=== PATIENT | male | born 1985 | race Caucasian/White ===

== ENCOUNTER 2016-10-28 16:51 | Emergency (ER) | payer OTHER ==
[2016-10-28 17:02] VITALS: BP 126/76; PULSE 92; TEMP 98.8; BMI 47.0
[2016-10-28 18:17] LABS: URINE APPEARANCE CLEAR; URINE BILIRUBIN NEGATIVE (NEGATIVE); URINE BLOOD NEGATIVE (NEGATIVE); URINE COLOR YELLOW; URINE GLUCOSE (UA) NEGATIVE (NEGATIVE); URINE KETONE TRACE (NEGATIVE); URINE NITRITE NEGATIVE (NEGATIVE); URINE UROBILINOGEN NEGATIVE E.U./dl (0.2-1.0)
[2016-10-28] MEDS ORDERED: AZITHROMYCIN 1 GM PACKET PO ONE (18:20)
[2016-10-28] MEDS ORDERED: AZITHROMYCIN 1 GM PACKET ONE (18:23)
[2016-10-28 18:26] LABS: URINE PROTEIN 1+ (NEGATIVE)
--- NOTE | 2016-10-28 18:26 | PDOC ---
History of Present Illness - General Chief Complaint: Pain Stated Complaint: CONGESTED/FEVER Time Seen by Provider: 10/28/16 18:04 History Source: Patient Exam Limitations: No Limitations - History of Present Illness Travel History: No Initial Comments: 10/28/16 18:20 31 yr male with c/o burning with urination and "white pimples" on the penis noticed one week ago. Pt denies abd pain neg nvd. Pt denies any history of herpes or STD in the past. Pt states his girlfriend has a UTI. no allergies. Timing/Duration: reports: constant, getting worse Quality: reports: mild, burning Pain Radiation: reports: no radiation Activities at Onset: reports: none Past History - Past Medical History Allergies/Adverse Reactions: Allergies Allergy/AdvReac Type Severity Reaction Status Date / Time No Known Allergies Allergy Verified 10/28/16 17:02 Home Medications: Ambulatory Orders No Home Medications 0 dose .ROUTE UTDICT 12/04/13 Acyclovir [Zovirax -] 400 mg PO TID #30 tablet 10/28/16 Albuterol Sulfate Inhaler - [Ventolin HFA Inhaler -] 1 - 2 inh PO QID #1 inhaler 10/28/16 Cancer: Yes (AML (REMISSION 2010)) - Immunization History Immunization Up to Date: Yes - Psycho/Social/Smoking Cessation Hx Anxiety: No Suicidal Ideation: No Smoking Status: Yes Smoking History: Current every day smoker Have you smoked in the past 12 months: Yes Number of Cigarettes Smoked Daily: 5 Cigars Per Day: 0 Information on smoking cessation initiated: Yes 'Breaking Loose' booklet given: 10/28/16 Hx Alcohol Use: Yes (SOCIAL) Drug/Substance Use Hx: No Substance Use Type: None Abd/GI Specific PMHX - Complaint Specific PMHX Colitis: No Diverticulitis: No Gall Bladder Disease: No GERD: No Hepatitis: No Irritable Bowel Synd (IBS): No Pancreatitis: No GI Ulcer Disease: No Review of Systems - Review of Systems Able to Perform ROS?: Yes Is the patient limited Turkish proficient: No Constitutional: No: Symptoms Reported HEENTM: Yes: Symptoms Reported Respiratory: Yes: Cough Cardiac (ROS): No: Symptoms Reported ABD/GI: No: Symptoms Reported : Yes: Symptoms Reported, Burning *Physical Exam - Vital Signs Last Vital Signs Temp Pulse Resp BP Pulse Ox 98.8 F 92 H 20 126/76 98 10/28/16 16:59 10/28/16 16:59 10/28/16 16:59 10/28/16 16:59 10/28/16 16:59 - Physical Exam General Appearance: Yes: Nourished, Appropriately Dressed HEENT: positive: EOMI, FAVIAN, Normal ENT Inspection, TMs Normal, Pharynx Normal Neck: negative: Tender Respiratory/Chest: positive: Lungs Clear, Normal Breath Sounds, Wheezing (exp ) . negative: Chest Tender Cardiovascular: positive: Regular Rhythm, Regular Rate Gastrointestinal/Abdominal: positive: Normal Bowel Sounds, Soft Male Genitalia: positive: normal genitalia, other (multiple white vesicular lesions to shaft of penis, grouped ) Musculoskeletal: positive: Normal Inspection Extremity: positive: Normal Capillary Refill, Normal Inspection, Normal Range of Motion Integumentary: positive: Normal Color, Dry, Warm Neurologic: positive: Fully Oriented, Alert, Normal Mood/Affect, Normal Response , Motor Strength 09/28 ED Treatment Course - LABORATORY CBC & Chemistry Diagram: 10/28/16 18:30 Medical Decision Making - Medical Decision Making 10/28/16 19:05 cc: urianry burning, white pimples on penis for 1 week pt also with cough mild exp wheezing no fever or chills no history of asthma , pt is a smoker will treat for Herpes, Gc, chlamydia will draw HIV, HEP , RPR 10/28/16 19:51 *DC/Admit/Observation/Transfer Diagnosis at time of Disposition: Bronchitis, Herpes genitalis in men - Discharge Dispostion Disposition: HOME Condition at time of disposition: Good - Prescriptions Prescriptions: Albuterol Sulfate Inhaler - [Ventolin HFA Inhaler -] 1 - 2 inh PO QID #1 inhaler Acyclovir [Zovirax -] 400 mg PO TID #30 tablet - Referrals Referrals: Jaguar Reina MD [Primary Care Provider] - - Patient Instructions Additional Instructions: 10/28/16 1. As discussed, a screening test for the HIV virus was performed today. Your HIV test is Negative (normal). 2. As discussed, if you engaged in high risk-behavior in the three (3) months prior to this test, you could still potentially be at risk and you will need to be re-tested. 3. As discussed, avoid any high risk behavior (such as unprotected sex or needle-sharing) in the future to minimize the chances of sunny HIV. take the prescribed medication as directed drink pleanty of water to stay hydrated follow with your doctor this week for follow up if your cough or breathing gets worse please tell your sexual partners they need to be tested for STD's always use condoms
[2016-10-28 18:27] LABS: URINE LEUK ESTERASE 1+ (NEGATIVE)
[2016-10-28 18:32] LABS: URINE MUCUS MANY; URINE RBC 6 /hpf (0-3); URINE WBC 30 /hpf (3-5)
[2016-10-28] MEDS ORDERED: ALBUTEROL SO4 2.5/IPRATROPIUM 0.5 INH SOL 3 ML VIAL.NEB. NEB ONE (18:39)
[2016-10-28 18:49] LABS: BASOPHIL 0.6 % (0-2.0); MCH 29.8 pg (25.7-33.7); MCHC 33.3 g/dl (32.0-35.9); MEAN CELL VOLUME 89.6 fl (80-96); MEAN PLT VOLUME 8.1 fl (7.5-11.1); NEUTROPHILS 62.6 % (42.8-82.8); PLATELET COUNT 193 K/MM3 (134-434); RDW 13.8 % (11.9-15.9); WHITE BLOOD COUNT 8.5 K/mm3 (4.0-10.0)
[2016-10-28] MEDS ORDERED: ALBUTEROL SO4 0.083% IH SOL 2.5 MG/3 ML VIAL.NEB. NEB ONE (18:50)
[2016-10-28 19:37] LABS: HIV 1 & 2 AB NEGATIVE; HIV 1 AGp24 NEGATIVE
== END 2016-10-28 19:51 | disposition home or self-care (01) ==
LOC: JERFT 16:51
PROC: 3E0F7GC Introduction of Other Therapeutic Substance into Respiratory Tract, Via Natural or Artificial Opening (ICD-10-PCS; principal; 2016-10-28)
PROC: 3E02329 Introduction of Other Anti-infective into Muscle, Percutaneous Approach (ICD-10-PCS; 2016-10-28)
DX: J40 Bronchitis, not specified as acute or chronic (principal); A60.01 Herpesviral infection of penis
CPT/HCPCS: 36415; 80074; 81003; 81015; 85025; 86593; 87086; 87389; 87491; 87591; 94640; 96372; 99281-25

== ENCOUNTER 2017-01-18 13:39 | Emergency (ER) | payer OTHER ==
[2017-01-18 14:16] VITALS: BP 127/79; PULSE 74; TEMP 98.6; BMI 43.7
[2017-01-18] MEDS ORDERED: LIDOCAINE HCL 1%, 10 MG/ML (20ML VIAL) ONE (15:14)
[2017-01-18] MEDS ORDERED: AZITHROMYCIN 1 GM PACKET ONE (15:14)
[2017-01-18 15:47] LABS: HIV 1 & 2 AB NEGATIVE; HIV 1 AGp24 NEGATIVE
--- NOTE | 2017-01-18 16:03 | PDOC ---
History of Present Illness - General Chief Complaint: Revisit, Lab Variance Stated Complaint: STD TESTING Time Seen by Provider: 01/18/17 15:03 History Source: Patient Exam Limitations: No Limitations - History of Present Illness Initial Comments: 01/18/17 16:22 31 yr male here to be tested for STD. Pt states he had genital herpes 2-3 months ago and was treated, here because his girlfriend told him to be tested. Pt denies any outbreak currently denies any history of chlamydia or ghonnorhea. Pt has history of leukemia in the past. Past History - Past Medical History Allergies/Adverse Reactions: Allergies Allergy/AdvReac Type Severity Reaction Status Date / Time acyclovir Allergy Intermediate Hives Verified 01/18/17 14:15 Home Medications: Ambulatory Orders Valacyclovir HCl [Valtrex -] 500 mg PO BID 01/18/17 Cancer: Yes (AML (REMISSION 2011)) - Immunization History Immunization Up to Date: Yes - Psycho/Social/Smoking Cessation Hx Anxiety: No Suicidal Ideation: No Smoking Status: Yes Smoking History: Current some day smoker Have you smoked in the past 12 months: Yes Number of Cigarettes Smoked Daily: 5 Cigars Per Day: 0 Information on smoking cessation initiated: No 'Breaking Loose' booklet given: 10/28/16 Hx Alcohol Use: Yes (SOCIAL) Drug/Substance Use Hx: No Substance Use Type: None Review of Systems - Review of Systems Able to Perform ROS?: Yes Is the patient limited Niuean proficient: No Constitutional: No: Symptoms Reported HEENTM: No: Symptoms Reported Respiratory: No: Symptoms reported Cardiac (ROS): No: Symptoms Reported ABD/GI: No: Symptoms Reported : No: Symptoms Reported Musculoskeletal: No: Symptoms Reported Integumentary: No: Symptoms Reported Neurological: No: Symptoms reported *Physical Exam - Vital Signs Last Vital Signs Temp Pulse Resp BP Pulse Ox 98.6 F 74 19 127/79 99 01/18/17 14:12 01/18/17 14:12 01/18/17 14:12 01/18/17 14:12 01/18/17 14:12 - Physical Exam General Appearance: Yes: Nourished, Appropriately Dressed HEENT: positive: EOMI, FAVIAN Neck: positive: Supple Respiratory/Chest: positive: Lungs Clear, Normal Breath Sounds Cardiovascular: positive: Regular Rhythm, Regular Rate Gastrointestinal/Abdominal: positive: Normal Bowel Sounds, Soft Male Genitalia: positive: normal genitalia. negative: normal prostate, discharge, testicular tenderness, testicular mass, epididymus tender, inguinal hernia, hernia, CVAT, hematuria Musculoskeletal: positive: Normal Inspection Extremity: positive: Normal Capillary Refill, Normal Inspection, Normal Range of Motion Integumentary: positive: Normal Color, Dry, Warm Neurologic: positive: Fully Oriented, Alert, Normal Mood/Affect, Normal Response , Motor Strength 5/5 Medical Decision Making - Medical Decision Making 01/18/17 16:27 cc: wants to be tested for STD as per his girlfriend pt has history of genital herpes 2 months ago first outbreak was treated, has no outbreak now will check for HIV, Hepatitis, RPR, chlamydia and ghonorrhea will refer to infectious disease to follow up *DC/Admit/Observation/Transfer Diagnosis at time of Disposition: Risk for sexually transmitted disease, Screen for STD (sexually transmitted disease) - Discharge Dispostion Disposition: HOME Condition at time of disposition: Good - Referrals Referrals: Elise Reina [Primary Care Provider] - Alanna Sarabia MD [Staff Physician] - - Patient Instructions Additional Instructions: 01/18/17 1. As discussed, a screening test for the HIV virus was performed today. Your HIV test is Negative (normal). 2. As discussed, if you engaged in high risk-behavior in the three (3) months prior to this test, you could still potentially be at risk and you will need to be re-tested. 3. As discussed, avoid any high risk behavior (such as unprotected sex or needle-sharing) in the future to minimize the chances of sunny HIV. please follow with infectious disease doctor for follow up always use condoms to prevent spreading of infectious sexual diseases
== END 2017-01-18 16:37 | disposition home or self-care (01) ==
LOC: JERFT 13:39
DX: Z11.3 Encounter for screening for infections with a predominantly sexual mode of transmission (principal); F17.210 Nicotine dependence, cigarettes, uncomplicated; C94.81 Other specified leukemias, in remission
CPT/HCPCS: 36415; 80074; 86593; 87389; 87491; 87591; 99281-25

== ENCOUNTER 2017-03-17 17:21 | Emergency (ER) | payer OTHER ==
[2017-03-17 17:25] VITALS: BP 147/72; PULSE 88; TEMP 98.3; BMI 43.7
--- NOTE | 2017-03-17 18:56 | PDOC ---
History of Present Illness - General Chief Complaint: Abscess Boil Stated Complaint: PAIN Time Seen by Provider: 03/17/17 18:28 History Source: Patient Exam Limitations: No Limitations - History of Present Illness Initial Comments: 03/17/17 18:57 This is a 31-year-old man with past medical history of AML, HSV who presents to the emergency department with an abscess on his lower abdomen. Patient states for the past 3 days he had this abscess which is slowly grown and become more painful over that time. He also noted that he has had other lesions similar- appearing over his back and on his buttocks. Denies any fevers, chest pain, nausea, vomiting, dizziness, shortness of breath. T Severity: Yes: mild Past History - Past Medical History Allergies/Adverse Reactions: Allergies Allergy/AdvReac Type Severity Reaction Status Date / Time acyclovir Allergy Intermediate Hives Verified 03/17/17 17:25 Home Medications: Ambulatory Orders Clindamycin HCl 300 mg PO QID #28 capsule 03/17/17 Cancer: Yes (AML (REMISSION 2010)) Other medical history: HERPES SIMPLEX 2 - Immunization History Immunization Up to Date: Yes - Suicide/Smoking/Psychosocial Hx Smoking Status: Yes Smoking History: Current every day smoker Have you smoked in the past 12 months: Yes Number of Cigarettes Smoked Daily: 5 Cigars Per Day: 0 Information on smoking cessation initiated: No 'Breaking Loose' booklet given: 10/28/16 Hx Alcohol Use: No Drug/Substance Use Hx: No Substance Use Type: None Review of Systems - Review of Systems Able to Perform ROS?: Yes Is the patient limited Eritrean proficient: No Constitutional: No: Symptoms Reported HEENTM: No: Symptoms Reported Respiratory: No: Symptoms reported Cardiac (ROS): No: Symptoms Reported ABD/GI: No: Symptoms Reported : No: Symptoms Reported Musculoskeletal: No: Symptoms Reported Integumentary: Yes: See HPI Neurological: No: Symptoms reported *Physical Exam - Vital Signs Last Vital Signs Temp Pulse Resp BP Pulse Ox 98.3 F 88 20 147/72 99 03/17/17 17:22 03/17/17 17:22 03/17/17 17:22 03/17/17 17:22 03/17/17 17:22 - Physical Exam General Appearance: Yes: Appropriately Dressed. No: Apparent Distress HEENT: positive: EOMI, FAVIAN Neck: positive: Trachea midline. negative: Supple Respiratory/Chest: positive: Lungs Clear, Normal Breath Sounds. negative: Respiratory Distress, Accessory Muscle Use Cardiovascular: positive: Regular Rhythm, Regular Rate. negative: Edema, Murmur Gastrointestinal/Abdominal: positive: Normal Bowel Sounds, Soft. negative: Tender Musculoskeletal: positive: Normal Inspection. 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 Patient states for the past 3 days he had this abscess which is slowly grown and become more painful over that time. He also noted that he has had other lesions similar- appearing over his back and on his buttocks. Denies any fevers, chest pain, nausea, vomiting, dizziness, shortness of breath. The abscess on his abdomen is 2 cm below the navel and is approximately 0.5 cm circular in induration. Flux once noted under indurated area. Gentle palpation of abscess expressible fluid until serosanguineous fluid was expressed. Patient with multiple other similar- appearing lesions that are much smaller in size throughout the body. None of these are painful. Diagnosis-abscesses I'll prescribe the patient clindamycin 300 mg 4 times a day for one week. Patient instructed to make an appointment with his primary doctor to follow-up. *DC/Admit/Observation/Transfer Diagnosis at time of Disposition: Abscess - Discharge Dispostion Disposition: HOME Condition at time of disposition: Stable Admit: No - Prescriptions Prescriptions: Clindamycin HCl 300 mg PO QID #28 capsule - Referrals Referrals: Jaguar Reina MD [Primary Care Provider] - - Patient Instructions Additional Instructions: Take clindamycin as prescribed. We she take all medications. Make an appointment with Dr. Reina for evaluation of not improve within the next 4 days. Make sure you make an appointment with Dr. Latosha if you feel any fevers, sore throat, body aches, dry cough or any other viral symptoms. Return to emergency department for increased pain on the abdominal wall, increased redness, foul smelling drainage, or any other concerns. Thank you for choosing us to provide your emergent healthcare needs.
== END 2017-03-17 19:05 | disposition home or self-care (01) ==
LOC: JERFT 17:21
DX: L02.211 Cutaneous abscess of abdominal wall (principal); C92.01 Acute myeloblastic leukemia, in remission; B00.9 Herpesviral infection, unspecified; F17.210 Nicotine dependence, cigarettes, uncomplicated
CPT/HCPCS: 99281-25

== ENCOUNTER 2017-05-21 08:06 | Emergency (ER) | payer OTHER ==
[2017-05-21 08:12] VITALS: BP 123/66; PULSE 88; TEMP 98.8; BMI 42.3
--- NOTE | 2017-05-21 09:04 | PDOC ---
History of Present Illness - General Chief Complaint: Rash Stated Complaint: GROIN PAIN Time Seen by Provider: 05/21/17 08:58 History Source: Patient Exam Limitations: No Limitations - History of Present Illness Initial Comments: 05/21/17 08:59 Patient here with complaints of ulceration on his penis. States suffers from genital herpes and thought may be an outbreak but this is a different type of lesion than before. Denies fever, denies any discharge, denies being sexually active Severity: Yes: mild Location: reports: none Respiratory Risk Factors: reports: no cause identified Past History - Travel Traveled outside of the country in the last 30 days: No Close contact w/someone who was outside of country & ill: No - Past Medical History Allergies/Adverse Reactions: Allergies Allergy/AdvReac Type Severity Reaction Status Date / Time acyclovir Allergy Intermediate Hives Verified 05/21/17 08:08 Home Medications: Ambulatory Orders Valacyclovir HCl [Valtrex] 1,000 mg PO TID #21 tablet 05/21/17 Cancer: Yes (AML (REMISSION 2010)) COPD: No Other medical history: g.herpes - Immunization History Immunization Up to Date: Yes - Suicide/Smoking/Psychosocial Hx Smoking Status: Yes Smoking History: Current every day smoker Have you smoked in the past 12 months: Yes Number of Cigarettes Smoked Daily: 5 Cigars Per Day: 0 Information on smoking cessation initiated: Yes 'Breaking Loose' booklet given: 05/21/17 Hx Alcohol Use: No Drug/Substance Use Hx: No Substance Use Type: None Review of Systems - Review of Systems Able to Perform ROS?: Yes Is the patient limited Swazi proficient: Yes Constitutional: Yes: See HPI, Malaise. No: Symptoms Reported, Chills, Fever HEENTM: No: Symptoms Reported Musculoskeletal: Yes: Symptoms Reported, See HPI, Back Pain All Other Systems: Reviewed and Negative *Physical Exam - Vital Signs Last Vital Signs Temp Pulse Resp BP Pulse Ox 98.8 F 88 18 123/66 100 05/21/17 08:08 05/21/17 08:08 05/21/17 08:08 05/21/17 08:08 05/21/17 08:08 - Physical Exam General Appearance: Yes: Nourished, Appropriately Dressed, Apparent Distress, Mild Distress HEENT: positive: FAVIAN, Normal ENT Inspection, TMs Normal, Pharynx Normal Neck: positive: Tender, Supple. 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, Fully Oriented, Alert, Normal Mood/ Affect, Normal Response, Motor Strength 09/28 Progress Note - Progress Note Progress Note: Genital herpes outbreak *DC/Admit/Observation/Transfer Diagnosis at time of Disposition: Herpes genitalis in men - Discharge Dispostion Disposition: HOME Condition at time of disposition: Stable - Referrals Referrals: Jaguar Reina MD [Primary Care Provider] - - Patient Instructions Printed Discharge Instructions: DI for Genital Herpes Additional Instructions: Rest, avoid strenuous activity or exercise until lesions healed No sexual activity until lesions are healed Take 2 tablets of 500 mg that [facility] have every 8 hours for the next one week or 1 g tablets every 8 hours for the next one week - Post Discharge Activity Forms/Work/School Notes: Back to Work
== END 2017-05-21 09:12 | disposition home or self-care (01) ==
LOC: JERFT 08:06
DX: A60.01 Herpesviral infection of penis (principal)
CPT/HCPCS: 99281-25

== ENCOUNTER 2017-06-16 10:10 | Emergency (ER) | payer OTHER ==
[2017-06-16 10:36] VITALS: BP 123/70; PULSE 78; TEMP 98.9; BMI 45.2
[2017-06-16] MEDS ORDERED: DEXAMETHASONE SOD PHOSPHATE 10 MG/1 ML VIAL IM ONE (11:24)
[2017-06-16] MEDS ORDERED: DEXAMETHASONE SOD PHOSPHATE 10 MG/1 ML VIAL ONE (11:28)
--- NOTE | 2017-06-16 11:32 | PDOC ---
History of Present Illness - General Chief Complaint: Rash Stated Complaint: RASH/HIVES Time Seen by Provider: 06/16/17 10:42 History Source: Patient Exam Limitations: No Limitations - History of Present Illness Initial Comments: 06/16/17 11:24 Onset of very itchy rash to thighs, back, forearms. States onset was 2 days ago , and is progressively become more itchy and spreading. Patient states suffers from eczema and has used topical hydrocortisone in the past but has not tried that with this. Was concerned may be an ALLERGIC reaction. Patient denies shortness of breath breathing problems or lips or tongue swelling. Denies any fevers, denies any exposure to any contagious diseases. He shouldn't is a survivor of leukemia status post chemotherapy 6 years ago and has extra concerns about rashes and skin problems. 06/16/17 13:36 Timing/Duration: reports: just prior to arrival Severity: Yes: mild, moderate Location: reports: extremities, genitalia Respiratory Risk Factors: reports: no cause identified Modifying Factors: improves with: scratching Associated Symptoms: reports: denies symptoms Past History - Travel Traveled outside of the country in the last 30 days: No - Past Medical History Allergies/Adverse Reactions: Allergies Allergy/AdvReac Type Severity Reaction Status Date / Time acyclovir Allergy Intermediate Hives Verified 06/16/17 10:30 Home Medications: Ambulatory Orders NK [No Known Home Medication] 06/16/17 Cancer: Yes (AML (REMISSION 2011)) COPD: No - Immunization History Immunization Up to Date: Yes - Suicide/Smoking/Psychosocial Hx Smoking Status: Yes Smoking History: Current every day smoker Have you smoked in the past 12 months: Yes Number of Cigarettes Smoked Daily: 5 Cigars Per Day: 0 Information on smoking cessation initiated: No 'Breaking Loose' booklet given: 05/21/17 Hx Alcohol Use: No Drug/Substance Use Hx: No Substance Use Type: None Review of Systems - Review of Systems Able to Perform ROS?: Yes Is the patient limited Setswana proficient: Yes Constitutional: Yes: Symptoms Reported, See HPI. No: Fever, Loss of Appetite, Malaise HEENTM: Yes: See HPI. No: Symptoms Reported Respiratory: Yes: See HPI. No: Symptoms reported, Cough, Wheezing Neurological: Yes: Symptoms reported, See HPI Endocrine: No: Symptoms Reported All Other Systems: Reviewed and Negative *Physical Exam - Vital Signs Last Vital Signs Temp Pulse Resp BP Pulse Ox 98.9 F 78 18 123/70 100 06/16/17 10:31 06/16/17 10:31 06/16/17 10:31 06/16/17 10:31 06/16/17 10:31 - Physical Exam General Appearance: Yes: Nourished, Appropriately Dressed. No: Apparent Distress HEENT: positive: FAVIAN, Normal ENT Inspection, TMs Normal, Pharynx Normal, Nasal Congestion Neck: positive: Supple. negative: Tender, Lymphadenopathy (R), Lymphadenopathy (L) Respiratory/Chest: positive: Lungs Clear (Elling,), Normal Breath Sounds. negative: Respiratory Distress Integumentary: positive: Rash (macular dry rash covering styes, posterior thighs , low back, and forearms. Mildly keratinized and has appearance of an eczema at us type rash. 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, Fully Oriented, Alert, Normal Mood/ Affect, Normal Response, Motor Strength 5/5 Progress Note - Progress Note Progress Note: Eczema exacerbation, given one dose of Decadron and encouraged to rule out with dermatology and continue moisturizing *DC/Admit/Observation/Transfer Diagnosis at time of Disposition: Dermatitis - Discharge Dispostion Disposition: HOME Condition at time of disposition: Stable Admit: No - Referrals Referrals: Jaguar Reina MD [Primary Care Provider] - - Patient Instructions Printed Discharge Instructions: DI for Atopic Dermatitis - Adult Additional Instructions: Rest, keep cool and dry- avoid strenuous activity or hot /humid environments Less hot showers, no abrasive soaps May use heavy creams like Eucerin or Cetaphil to keep skin moist , Vaseline currently recommended for better hydrating purpose May use Benadryl at night for antihistamine, Zyrtec/ Denae or Claritin for daytime antihistamine use to help with itching You have been given one dose of 10 mg of Decadron as a steroid for 1 time dose Bleach baths, one half cup in a full tub of water creating a dilute solution and soaking for proximally 10 minutes. This chlorine is less strong than swimming pool if properly diluted. Will not discolor skin, avoid splashing in face or eyes. This will decolonize/decontaminate skin from the bacteria that may be causing worsened eczema and itching. Some doctors recommend daily until severe episode is resolving then twice a week until healed Followup with PMD in one week if no resolution Make appointment with data communications technician for evaluation when possible - Post Discharge Activity Forms/Work/School Notes: Back to Work
== END 2017-06-16 11:41 | disposition home or self-care (01) ==
LOC: JERFT 10:10 → JER 10:10 → JERFT 11:32
PROC: 3E0233Z Introduction of Anti-inflammatory into Muscle, Percutaneous Approach (ICD-10-PCS; principal; 2017-06-16)
DX: L30.8 Other specified dermatitis (principal)
CPT/HCPCS: 96372; 99281-25

== ENCOUNTER 2017-06-30 20:14 | Emergency (ER) | payer SELFPAY ==
[2017-06-30 20:31] VITALS: BP 139/95; TEMP 98.1; BMI 46.0
[2017-06-30] MEDS ORDERED: ACETAMINOPHEN 1000 MG/100 ML VIAL (NON FORMULARY) IVPB ONE (20:42)
[2017-06-30] MEDS ORDERED: KETOROLAC TROMETHAMINE 30 MG/1 ML VIAL IVPUSH ONE (20:42)
[2017-06-30] MEDS ORDERED: KETOROLAC TROMETHAMINE 30 MG/1 ML VIAL ONE (20:42)
[2017-06-30] MEDS ORDERED: SODIUM CHLORIDE 0.9% 500 ML INFUS.BAG IV ONE (20:45)
[2017-06-30] MEDS ORDERED: LACTATED RINGERS SOLUTION 1,000 ML/1,000 ML INFUS.BAG IV STA (20:46)
[2017-06-30] MEDS ORDERED: ACETAMINOPHEN INJECTION 100 ML IVPB ONE (20:49)
--- NOTE | 2017-06-30 20:49 | PDOC ---
History of Present Illness - General Chief Complaint: Pain, Acute Stated Complaint: PAIN Time Seen by Provider: 06/30/17 20:34 History Source: Patient Exam Limitations: No Limitations - History of Present Illness Initial Comments: This is a 31 YOM with h/o leukemia and prior kidney stone 10 years ago who p/w RLQ pain since this afternoon and hematuria on arrival to the ED which feels exactly the same as his prior kidney stone. The pain is sharp, 10/10, and non- radiating. The only additional symptom he has been having today is mild loose stool. He denies any fever, chills, nausea, vominting, chest pain, SOB, dysuria , testicular pain/swelling, penile discharge, or other symptoms. He has not taken medications for the pain today. His prior kidney stone passed spontaneously without lithotripsy. Past History - Past Medical History Allergies/Adverse Reactions: Allergies Allergy/AdvReac Type Severity Reaction Status Date / Time acyclovir Allergy Intermediate Hives Verified 06/30/17 20:27 Home Medications: Ambulatory Orders Ciprofloxacin [Cipro (Restricted To Id)] 500 mg PO Q12H #6 tablet 06/30/17 Ketorolac Tromethamine [Toradol] 10 mg PO TID #21 tablet 06/30/17 Tamsulosin HCl [Flomax] 0.4 mg PO DAILY #7 cap.er.24h 06/30/17 Cancer: Yes (AML (REMISSION 2010)) COPD: No - Immunization History Immunization Up to Date: Yes - Suicide/Smoking/Psychosocial Hx Smoking Status: Yes Smoking History: Unknown if ever smoked Have you smoked in the past 12 months: Yes Number of Cigarettes Smoked Daily: 5 Cigars Per Day: 0 'Breaking Loose' booklet given: 05/21/17 Hx Alcohol Use: No Drug/Substance Use Hx: No Substance Use Type: None Abd/GI Specific PMHX - Complaint Specific PMHX Colitis: No Diverticulitis: No Gall Bladder Disease: No GERD: No Hepatitis: No Irritable Bowel Synd (IBS): No Pancreatitis: No GI Ulcer Disease: No Review of Systems - Review of Systems Able to Perform ROS?: Yes Constitutional: No: Chills, Fever, Unexplained wgt Loss HEENTM: No: Nose Congestion, Throat Pain Respiratory: No: Cough, Shortness of Breath Cardiac (ROS): No: Chest Pain, Palpitations ABD/GI: Yes: Diarrhea, Other (RLQ pain). No: Constipated, Nausea, Vomiting : Yes: Hematuria. No: Burning, Dysuria Musculoskeletal: No: Back Pain, Neck Pain Integumentary: No: Bruising, Rash Neurological: No: Headache, Numbness, Tingling, Weakness, Dizziness Endocrine: No: Unexplained Weight Gain, Unexplained Weight Loss *Physical Exam - Vital Signs Last Vital Signs Temp Pulse Resp BP Pulse Ox 98.1 F 96 H 139/95 99 06/30/17 20:27 06/30/17 20:27 06/30/17 20:27 06/30/17 20:27 - Physical Exam General Appearance: Yes: Nourished, Appropriately Dressed, Moderate Distress, Obese, Other (uncomfortable appearing adult male, moaning in pain, answering questions appropriately) HEENT: positive: EOMI, FAVIAN, Normal Voice, Hearing Grossly Normal. negative: Scleral Icterus (R), Scleral Icterus (L), Nasal Congestion Neck: positive: Trachea midline, Supple. negative: Tender, Rigid Respiratory/Chest: positive: Lungs Clear, Normal Breath Sounds. negative: Respiratory Distress, Crackles, Rhonchi, Stridor, Wheezing Cardiovascular: positive: Regular Rhythm, Regular Rate. negative: Murmur Gastrointestinal/Abdominal: positive: Normal Bowel Sounds, Soft. negative: Tender, Organomegaly, Pulsatile Mass, Guarding Musculoskeletal: positive: Normal Inspection. negative: Decreased Range of Motion, Vertebral Tenderness Extremity: positive: Normal Capillary Refill, Normal Inspection, Normal Range of Motion. negative: Tender, Cyanosis Integumentary: positive: Normal Color, Dry, Warm. 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 negative: Facial Droop , Numbness, Sensory Deficit, Finger to Nose, Confused, Disoriented ED Treatment Course - LABORATORY CBC & Chemistry Diagram: 06/30/17 20:43 06/30/17 20:43 *DC/Admit/Observation/Transfer Diagnosis at time of Disposition: Ureteral stone Gallstones without obstruction of gallbladder Qualifiers: Cholelithiasis location: gallbladder Cholecystitis presence: without cholecystitis Qualified Code(s): K80.20 - Calculus of gallbladder without cholecystitis without obstruction - Discharge Dispostion Disposition: HOME Condition at time of disposition: Stable Admit: No - Prescriptions Prescriptions: Ciprofloxacin [Cipro (Restricted To Id)] 500 mg PO Q12H #6 tablet Ketorolac Tromethamine [Toradol] 10 mg PO TID #21 tablet Tamsulosin HCl [Flomax] 0.4 mg PO DAILY #7 cap.er.24h - Referrals Referrals: Jaguar Reina MD [Primary Care Provider] - - Patient Instructions Printed Discharge Instructions: DI for Kidney Stones Additional Instructions: You were seen in the ER for a kidney stone. Your blood and urine labwork was unremarkable. Your CT scan of the abdomen showed the kidney stone at the very end of the tube leading to the bladder, meaning that it is almost done passing. It is 4 mm and should pass on its own. You also have gallbladder stones which are not causing a problem at this time. 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 Follow up with Dr. Reina tomorrow, or return to the ER for any new or worsening symptoms. - Post Discharge Activity
[2017-06-30 20:55] LABS: BASO % 0.6 % (0-2.0); EOS % 0.8 % (0-4.5); HEMATOCRIT 46.1 % (35.4-49); HEMOGLOBIN 15.4 GM/dL (11.7-16.9); LYMPH % 40.8 % (8-40); MCH 28.9 pg (25.7-33.7); MCHC 33.4 g/dl (32.0-35.9); MEAN CELL VOLUME 86.3 fl (80-96); MEAN PLT VOLUME 7.8 fl (7.5-11.1); NEUT % 49.8 % (42.8-82.8); PLATELET COUNT 208 K/MM3 (134-434); RBC 5.33 M/mm3 (4.00-5.60); WHITE BLOOD COUNT 11.3 K/mm3 (4.0-10.0)
--- NOTE | 2017-06-30 21:00 | PDOC ---
Attending Attestation - Resident Resident Name: Carri Richardson - ED Attending Attestation I have performed the following: I have examined & evaluated the patient, The case was reviewed & discussed with the resident, I agree w/resident's findings & plan, Exceptions are as noted - HPI HPI: 06/30/17 21:00 31 yo male with rlq, sudden onset . No nausea,vomiting + hematuria - Physicial Exam PE: 06/30/17 22:35 wnwd 31 yo male p/w sudden rt sided pain and hematuria head ncat neck supple lungs cta b/l cvs [id number] aed no rebound no guarding musculoskeletal + rt flank pain ext no edema,no erythema neuro axox3,ambulatory,no focal neuro deficits skin warm,dry psych appropriate - Medical Decision Making 06/30/17 23:32 nonconstructive 4mm stone at UVJ, pt to follow up as outpt
[2017-06-30] MEDS ORDERED: morphine CARPU-JECT 2 MG/1 ML DISP.SYRIN IVPUSH ONE (21:15)
[2017-06-30] MEDS ORDERED: MORPHINE SULFATE 10 MG/1 ML *VIAL ONE (21:16)
[2017-06-30 21:21] LABS: ALBUMIN 3.7 g/dl (3.4-5.0); ALK PHOS 82 U/L (45-117); ANION GAP 9 (8-16); BILIRUBIN,TOTAL 0.4 mg/dL (0.2-1.0); BLOOD UREA NITROGEN 10 mg/dL (7-18); CALCIUM 8.6 mg/dL (8.5-10.1); CHLORIDE 107 mmol/L (98-107); CO2 25 mmol/L (21-32); CREATININE 0.6 mg/dL (0.7-1.3); GLUCOSE,RANDOM 101 mg/dL (74-106); POTASSIUM 3.8 mmol/L (3.5-5.1); SGOT/AST 17 U/L (15-37); SGPT/ALT 32 U/L (12-78); SODIUM 141 mmol/L (136-145); TOT PROT 6.7 g/dl (6.4-8.2)
[2017-06-30 21:35] LABS: URINE APPEARANCE SLCLOUDY; URINE BILIRUBIN NEGATIVE (NEGATIVE); URINE BLOOD 3+ (NEGATIVE); URINE COLOR YELLOW; URINE GLUCOSE (UA) NEGATIVE (NEGATIVE); URINE KETONE NEGATIVE (NEGATIVE); URINE LEUK ESTERASE NEGATIVE (NEGATIVE); URINE NITRITE NEGATIVE (NEGATIVE); URINE PROTEIN NEGATIVE (NEGATIVE); URINE UROBILINOGEN NEGATIVE mg/dL (0.2-1.0)
[2017-06-30 21:39] LABS: EPI CELLS RARE /HPF (FEW); URINE HYALINE CAST 3 /lpf; URINE MUCUS MODERATE
== END 2017-07-01 00:04 | disposition home or self-care (01) ==
LOC: JER 20:14
PROC: 3E0337Z Introduction of Electrolytic and Water Balance Substance into Peripheral Vein, Percutaneous Approach (ICD-10-PCS; principal; 2017-06-30)
PROC: 3E033NZ Introduction of Analgesics, Hypnotics, Sedatives into Peripheral Vein, Percutaneous Approach (ICD-10-PCS; 2017-06-30)
PROC: 3E033NZ Introduction of Analgesics, Hypnotics, Sedatives into Peripheral Vein, Percutaneous Approach (ICD-10-PCS; 2017-06-30)
PROC: 3E0333Z Introduction of Anti-inflammatory into Peripheral Vein, Percutaneous Approach (ICD-10-PCS; 2017-06-30)
DX: N20.1 Calculus of ureter (principal); Z87.442 Personal history of urinary calculi; K80.20 Calculus of gallbladder without cholecystitis without obstruction; C94.81 Other specified leukemias, in remission
CPT/HCPCS: 36415; 74176; 80053; 81003; 81015; 85025; 99282-25

== ENCOUNTER 2017-07-01 21:02 | Emergency (ER) | payer SELFPAY ==
--- NOTE | 2017-07-01 21:23 | PDOC ---
Rapid Medical Evaluation Time Seen by Provider: 07/01/17 21:23 Medical Evaluation: Allergies Allergy/AdvReac Type Severity Reaction Status Date / Time acyclovir Allergy Intermediate Hives Verified 06/30/17 20:27 07/01/17 21:23 The patient presents with a chief complaint of: right sided back pain. Diagnosed with a kidney stone last night. 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 I have performed a brief in-person evaluation of this patient; Pertinent physical exam findings: ambulatory, in no respiratory distress. CVA tenderness on the R. Pulse 97, 155/101 I have ordered the following: CBC, CMP, UA, Toradol, Zofran, IVF The patient will proceed to the ED for further evaluation. Discharge Disposition - Referrals Referrals: Jaguar Reina MD [Primary Care Provider] - - Patient Instructions - Post Discharge Activity
[2017-07-01] MEDS ORDERED: SODIUM CHLORIDE 1,000 ML IV STA (21:29)
[2017-07-01] MEDS ORDERED: KETOROLAC TROMETHAMINE 30 MG/1 ML VIAL IVPUSH ONE (21:29)
[2017-07-01 21:30] VITALS: TEMP 98.3; BMI 44.6
[2017-07-01] MEDS ORDERED: ONDANSETRON 4 MG/2 ML VIAL IVPUSH ONE (21:30)
[2017-07-01 21:52] LABS: BASO % 0.6 % (0-2.0); EOS % 1.1 % (0-4.5); HEMATOCRIT 46.7 % (35.4-49); HEMOGLOBIN 15.7 GM/dL (11.7-16.9); LYMPH % 30.4 % (8-40); MCHC 33.6 g/dl (32.0-35.9); MEAN CELL VOLUME 86.3 fl (80-96); MONO % 8.5 % (3.8-10.2); NEUT % 59.4 % (42.8-82.8); PLATELET COUNT 218 K/MM3 (134-434); RBC 5.41 M/mm3 (4.00-5.60); RDW 14.1 % (11.9-15.9)
[2017-07-01 21:54] LABS: URINE APPEARANCE CLEAR; URINE BILIRUBIN NEGATIVE (NEGATIVE); URINE BLOOD 2+ (NEGATIVE); URINE COLOR LTYELLOW; URINE GLUCOSE (UA) NEGATIVE (NEGATIVE); URINE KETONE NEGATIVE (NEGATIVE); URINE LEUK ESTERASE NEGATIVE (NEGATIVE); URINE NITRITE NEGATIVE (NEGATIVE); URINE PROTEIN NEGATIVE (NEGATIVE); URINE UROBILINOGEN NEGATIVE mg/dL (0.2-1.0)
[2017-07-01] MEDS ORDERED: TAMSULOSIN HCL 0.4 MG CAP.ER.24H (FP) PO ONE (22:04)
--- NOTE | 2017-07-01 22:05 | PDOC ---
History of Present Illness - General Chief Complaint: Pain Stated Complaint: FLANK PAIN Time Seen by Provider: 07/01/17 21:23 - History of Present Illness Initial Comments: 07/01/17 22:13 31-year-old male with history of kidney stones and AML seen in the ER yesterday and was diagnosed with a 4 mm stone at the right UVJ complaining of right flank pain radiating to the right groin. 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 Past History - Past Medical History Allergies/Adverse Reactions: Allergies Allergy/AdvReac Type Severity Reaction Status Date / Time acyclovir Allergy Intermediate Hives Verified 07/01/17 21:25 Home Medications: Ambulatory Orders Ciprofloxacin [Cipro (Restricted To Id)] 500 mg PO Q12H #6 tablet 06/30/17 Ketorolac Tromethamine [Toradol] 10 mg PO TID #21 tablet 06/30/17 Ibuprofen 800 mg PO QID PRN #14 tablet 07/02/17 Oxycodone HCl/Acetaminophen [Percocet 5-325 mg Tablet] 1 - 2 tab PO Q6H PRN #5 tab MDD 4 07/02/17 Tamsulosin HCl [Flomax] 0.4 mg PO DAILY #7 cap.er.24h 07/02/17 Cancer: Yes (AML (REMISSION 2010)) COPD: No GI Disorders: Yes (renal stones (long time ago)) - Immunization History Immunization Up to Date: Yes - Suicide/Smoking/Psychosocial Hx Smoking Status: Yes Smoking History: Current some day smoker Have you smoked in the past 12 months: Yes Number of Cigarettes Smoked Daily: 5 Cigars Per Day: 0 Information on smoking cessation initiated: No 'Breaking Loose' booklet given: 05/21/17 Hx Alcohol Use: No Drug/Substance Use Hx: No Substance Use Type: None Abd/GI Specific PMHX - Complaint Specific PMHX Colitis: No Diverticulitis: No Gall Bladder Disease: No GERD: No Hepatitis: No Irritable Bowel Synd (IBS): No Pancreatitis: No GI Ulcer Disease: No Review of Systems - Review of Systems Able to Perform ROS?: Yes Is the patient limited [place] proficient: No ABD/GI: Yes: Nausea, Vomiting : Yes: Flank Pain (right) *Physical Exam - Vital Signs Last Vital Signs Temp Pulse Resp BP Pulse Ox 98.3 F 97 H 24 155/101 99 07/01/17 21:26 07/01/17 21:26 07/01/17 21:26 07/01/17 21:26 07/01/17 21:26 - Physical Exam General Appearance: Yes: Appropriately Dressed Respiratory/Chest: positive: Lungs Clear, Normal Breath Sounds ED Treatment Course - LABORATORY CBC & Chemistry Diagram: 07/01/17 21:38 07/01/17 21:38 - ADDITIONAL ORDERS Additional order review: Laboratory Results 07/01/17 21:38 Urine Color Ltyellow Urine Appearance Clear Urine pH 5.0 Ur Specific [place] 1.017 Urine Protein Negative Urine Glucose (UA) Negative Urine Ketones Negative Urine Blood 2+ H Urine Nitrite Negative Urine Bilirubin Negative Urine Urobilinogen Negative Ur Leukocyte Esterase Negative 07/01/17 21:38 RBC 5.41 MCV 86.3 MCHC 33.6 RDW 14.1 MPV 8.0 Neutrophils % 59.4 Lymphocytes % 30.4 D Monocytes % 8.5 Eosinophils % 1.1 Basophils % 0.6 *DC/Admit/Observation/Transfer Diagnosis at time of Disposition: Renal colic on right side - Discharge Dispostion Disposition: HOME - Prescriptions Prescriptions: Ibuprofen 800 mg PO QID PRN #14 tablet PRN Reason: Mild Pain Oxycodone HCl/Acetaminophen [Percocet 5-325 mg Tablet] 1 - 2 tab PO Q6H PRN #5 tab MDD 4 PRN Reason: Moderate Pain Tamsulosin HCl [Flomax] 0.4 mg PO DAILY #7 cap.er.24h - Referrals Referrals: Jaguar Reina MD [Primary Care Provider] - Vipin Lopez MD [Staff Physician] - 24 hours - Patient Instructions Printed Discharge Instructions: Kidney Stones -- Adult Additional Instructions: drink plenty of fluids. follow up with your doctor as soon as possible. take medication as prescribed. - Post Discharge Activity
[2017-07-01 22:32] LABS: ALBUMIN 3.8 g/dl (3.4-5.0); ALK PHOS 78 U/L (45-117); ANION GAP 8 (8-16); BILIRUBIN,TOTAL 0.7 mg/dL (0.2-1.0); BLOOD UREA NITROGEN 11 mg/dL (7-18); CALCIUM 8.5 mg/dL (8.5-10.1); CHLORIDE 107 mmol/L (98-107); CO2 26 mmol/L (21-32); CREATININE 0.6 mg/dL (0.7-1.3); GLUCOSE,RANDOM 97 mg/dL (74-106); POTASSIUM 4.1 mmol/L (3.5-5.1); SGOT/AST 16 U/L (15-37); SGPT/ALT 35 U/L (12-78); SODIUM 141 mmol/L (136-145)
[2017-07-01] MEDS ORDERED: morphine CARPU-JECT 4 MG/1 ML DISP.SYRIN IVPUSH ONE (23:24)
[2017-07-01] MEDS ORDERED: MORPHINE SULFATE 10 MG/1 ML *VIAL ONE (23:29)
[2017-07-01 23:38] VITALS: BP 113/48; PULSE 76
== END 2017-07-02 00:34 | disposition home or self-care (01) ==
LOC: JER 21:02
DX: N20.0 Calculus of kidney (principal); Z87.442 Personal history of urinary calculi; Z85.6 Personal history of leukemia; Z72.0 Tobacco use
CPT/HCPCS: 36415; 80053; 81003; 81015; 85025; 99283-25

== ENCOUNTER 2017-07-02 08:16 | Inpatient (IN) | payer SELFPAY ==
[2017-07-02 08:28] VITALS: BMI 44.6
[2017-07-02] MEDS ORDERED: KETOROLAC TROMETHAMINE 30 MG/1 ML VIAL IVPUSH ONE ×2 (08:40→12:28)
[2017-07-02] MEDS ORDERED: ACETAMINOPHEN 1000 MG/100 ML VIAL (NON FORMULARY) IVPB ONE (08:40)
[2017-07-02] MEDS ORDERED: morphine CARPU-JECT 4 MG/1 ML DISP.SYRIN IVPUSH ONE ×2 (08:40→11:03)
[2017-07-02] MEDS ORDERED: TAMSULOSIN HCL 0.4 MG CAP.ER.24H (FP) PO ONE ×2 (08:42→15:30)
[2017-07-02] MEDS ORDERED: SODIUM CHLORIDE 1,000 ML IV STA (08:42)
[2017-07-02] MEDS ORDERED: ONDANSETRON 4 MG/2 ML VIAL IVPUSH ONE (08:42)
[2017-07-02] MEDS ORDERED: TAMSULOSIN HCL 0.4 MG CAP.ER.24H (FP) ONE (08:49)
[2017-07-02] MEDS ORDERED: MORPHINE SULFATE 10 MG/1 ML *VIAL ONE (08:49)
[2017-07-02] MEDS ORDERED: ACETAMINOPHEN INJECTION 100 ML IVPB ONE (08:50)
[2017-07-02] MEDS ORDERED: KETOROLAC TROMETHAMINE 15 MG/ML VIAL ONE ×2 (08:50→12:52)
[2017-07-02] MEDS ORDERED: ONDANSETRON 4 MG/2 ML VIAL ONE (08:50)
--- NOTE | 2017-07-02 09:16 | PDOC ---
History of Present Illness - General Chief Complaint: Pain, Acute Stated Complaint: RT SIDE PAIN Time Seen by Provider: 07/02/17 08:35 History Source: Patient Exam Limitations: No Limitations - History of Present Illness Initial Comments: This is a 31 YOM with h/o kidney stone 10 years ago (passed spontaneously) who returns for a third visit to the ED in three days for right ureteral stone confirmed by spiral CT here in the ED on 06/30/17. The stone is 4 mm and was at the UVJ with mild right hydronephrosis on 06/30/17. The patient has been unable to roller picker his E-Rx (Flomax, toradol, ciprofloxacin) d/t lapse in insurance coverage, and returned to the ED last night because he could not control the pain with OTC pain medications. This is the same reason he returns to us today. He notes 10/10 sharp non-radiating pain in the RLQ (which has migrated slightly since his first visit 06/30). His last episode of hematuria was last night, and since that time he has had difficulty starting a stream of urine. He additionally notes nausea, but no additional symptoms (no vomiting, fever, chills, burning urination, penile discharge, testicular pain/swelling, or other symptoms. Past History - Past Medical History Allergies/Adverse Reactions: Allergies Allergy/AdvReac Type Severity Reaction Status Date / Time acyclovir Allergy Intermediate Hives Verified 07/02/17 08:24 Home Medications: Ambulatory Orders Ciprofloxacin [Cipro (Restricted To Id)] 500 mg PO Q12H #6 tablet 06/30/17 Ketorolac Tromethamine [Toradol] 10 mg PO TID #21 tablet 06/30/17 Ibuprofen 800 mg PO QID PRN #14 tablet 07/02/17 Oxycodone HCl/Acetaminophen [Percocet 5-325 mg Tablet] 1 - 2 tab PO Q6H PRN #5 tab MDD 4 07/02/17 Tamsulosin HCl [Flomax] 0.4 mg PO DAILY #7 cap.er.24h 07/02/17 Cancer: Yes (AML (REMISSION 2010)) COPD: No GI Disorders: Yes (renal stones (long time ago)) - Immunization History Immunization Up to Date: Yes - Suicide/Smoking/Psychosocial Hx Smoking Status: Yes Smoking History: Current some day smoker Have you smoked in the past 12 months: Yes Number of Cigarettes Smoked Daily: 2 Cigars Per Day: 0 Information on smoking cessation initiated: No 'Breaking Loose' booklet given: 05/21/17 Hx Alcohol Use: No Drug/Substance Use Hx: No Substance Use Type: None Abd/GI Specific PMHX - Complaint Specific PMHX Colitis: No Diverticulitis: No Gall Bladder Disease: No GERD: No Hepatitis: No Irritable Bowel Synd (IBS): No Pancreatitis: No GI Ulcer Disease: No Review of Systems - Review of Systems Able to Perform ROS?: Yes Constitutional: No: Chills, Fever, Unexplained wgt Loss HEENTM: No: Nose Congestion, Throat Pain Respiratory: No: Cough, Shortness of Breath Cardiac (ROS): No: Chest Pain, Palpitations ABD/GI: Yes: Nausea, Other (RLQ pain). No: Constipated, Diarrhea, Vomiting : Yes: Hematuria, Other (difficulty urinating). No: Burning, Dysuria Musculoskeletal: No: Back Pain, Neck Pain Integumentary: No: Bruising, Rash Neurological: No: Headache, Numbness, Tingling, Weakness, Dizziness Endocrine: No: Unexplained Weight Gain, Unexplained Weight Loss *Physical Exam - Vital Signs Last Vital Signs Temp Pulse Resp BP Pulse Ox 98.4 F 91 H 20 142/83 97 07/02/17 08:24 07/02/17 08:24 07/02/17 08:24 07/02/17 08:24 07/02/17 08:24 - Physical Exam General Appearance: Yes: Nourished, Appropriately Dressed, Mild Distress, Obese , Other (uncomfortable-appearing adult male, laying flat in hospital bed and splinting RLQ with right hand, andswers questions appropriately) HEENT: positive: EOMI, FAVIAN, Normal Voice, Hearing Grossly Normal. negative: Scleral Icterus (R), Scleral Icterus (L), Nasal Congestion Neck: positive: Trachea midline, Supple. negative: Tender, Rigid Respiratory/Chest: positive: Lungs Clear, Normal Breath Sounds. negative: Respiratory Distress, Crackles, Rhonchi, Stridor, Wheezing Cardiovascular: positive: Regular Rhythm, Regular Rate, S1, S2. negative: Edema , JVD, Murmur Gastrointestinal/Abdominal: positive: Normal Bowel Sounds, Tender (moderate inferior RLQ ttp, no masses/hernias, negative Rovsing sign, negative Dutta's sign, no RUQ ttp), Soft. negative: Organomegaly, Pulsatile Mass, Increased Bowel Sounds, Distended, Guarding, Rebound, Hernia, Mass, Hepatomegaly Male Genitalia: positive: normal genitalia. negative: testicular tenderness, testicular mass Musculoskeletal: positive: Normal Inspection. negative: Decreased Range of Motion, Vertebral Tenderness Extremity: positive: Normal Capillary Refill, Normal Inspection, Normal Range of Motion. negative: Tender, Cyanosis Integumentary: positive: Normal Color, Dry, Warm. 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 negative: Confused, Disoriented ED Treatment Course - LABORATORY CBC & Chemistry Diagram: 07/02/17 08:42 07/02/17 08:42 Medical Decision Making - Medical Decision Making 31 YOM with h/o kidney stone who returns for 3rd visit to ED for right ureteral stone. Unable to roller picker medications at pharmacy d/t insurance lapse. On exam HR 91 otherwise VS not concerning, appears uncomfortable, RLQ ttp, otherwise unremarkable. Ordered is toradol, Ofirmev, morphine, Flomax, IVF, CBCD, CMP, lipase, UA Cx. 07/02/17 11:00 Second dose of morphine 2 mg IV ordered. 07/02/17 12:28 Second dose of Toradol 15 mg IV ordered. Page sent to Dr. Platt, currently admitting for Pt's PCP Jaguar Reina. 07/02/17 12:[address] Platt who admits to Obs Med/Surg. Requests Dr. Negrita Reina, consult order placed as such. *DC/Admit/Observation/Transfer Diagnosis at time of Disposition: Intractable abdominal pain, Right kidney stone, Hydronephrosis, right - Discharge Dispostion Condition at time of disposition: Guarded Admit: Yes - Referrals - Patient Instructions - Post Discharge Activity
--- NOTE | 2017-07-02 09:26 | PDOC ---
Attending Attestation - Resident Resident Name: Carri Richardson - ED Attending Attestation I have performed the following: I have examined & evaluated the patient, The case was reviewed & discussed with the resident, I agree w/resident's findings & plan, Exceptions are as noted - HPI HPI: 07/02/17 09:24 31-year-old male with history of leukemia in remission presents for third visit in 3 days for right 4 mm UVJ stone pain. Has had right flank pain radiating to the right groin, was diagnosed via CAT scan and discharged on pain medications but patient does not have active insurance so he returns to the ED 2 for pain control. Today, reports decreased urine output with occasional gross hematuria, otherwise the pain is consistently in his right groin, no associated vomiting or fevers or chills. - Physicial Exam PE: 07/02/17 09:25 Afebrile Comfortable now after pain medications Abdomen is soft/nondistended. No right upper quadrant tenderness, mild right lateral abdomen and right pelvic discomfort, no tenderness at McBurney's, no guarding or rebound, normal exam. - Medical Decision Making 07/02/17 09:25 Patient seen and evaluated with the resident. I agree with the overall evaluation, assessment, and management with the following summary of visit: 31-year-old male with intractable right kidney stone pain, now with decreased urine output. Rule out obstructive renal insufficiency, rule out superimposed infection, may require intervention as we approach 72 hours of symptoms. Labs, urinalysis Right renal ultrasound Pain control Urology consult
[2017-07-02 09:28] LABS: BASO % 0.3 % (0-2.0); HEMATOCRIT 42.7 % (35.4-49); HEMOGLOBIN 14.2 GM/dL (11.7-16.9); LYMPH % 15.9 % (8-40); MCH 28.7 pg (25.7-33.7); MCHC 33.3 g/dl (32.0-35.9); MEAN CELL VOLUME 86.1 fl (80-96); MEAN PLT VOLUME 7.8 fl (7.5-11.1); MONO % 7.5 % (3.8-10.2); NEUT % 75.3 % (42.8-82.8); PLATELET COUNT 186 K/MM3 (134-434); RBC 4.96 M/mm3 (4.00-5.60); URINE APPEARANCE CLEAR; URINE BILIRUBIN NEGATIVE (NEGATIVE); URINE BLOOD 1+ (NEGATIVE); URINE COLOR YELLOW; URINE GLUCOSE (UA) NEGATIVE (NEGATIVE); URINE KETONE NEGATIVE (NEGATIVE); URINE LEUK ESTERASE NEGATIVE (NEGATIVE); URINE NITRITE NEGATIVE (NEGATIVE); URINE PROTEIN NEGATIVE (NEGATIVE); URINE UROBILINOGEN NEGATIVE mg/dL (0.2-1.0); WHITE BLOOD COUNT 10.4 K/mm3 (4.0-10.0)
[2017-07-02 09:49] LABS: URINE MUCUS FEW
[2017-07-02 09:50] LABS: ALBUMIN 3.3 g/dl (3.4-5.0); ANION GAP 8 (8-16); BLOOD UREA NITROGEN 13 mg/dL (7-18); CALCIUM 8.1 mg/dL (8.5-10.1); CHLORIDE 107 mmol/L (98-107); CO2 28 mmol/L (21-32); CREATININE 0.8 mg/dL (0.7-1.3); GLUCOSE,RANDOM 100 mg/dL (74-106); LIPASE 113 U/L (73-393); POTASSIUM 3.8 mmol/L (3.5-5.1); SGOT/AST 14 U/L (15-37); SGPT/ALT 28 U/L (12-78); SODIUM 143 mmol/L (136-145)
[2017-07-02 09:52] LABS: ALK PHOS 81 U/L (45-117); BILIRUBIN,TOTAL 0.3 mg/dL (0.2-1.0); TOT PROT 6.1 g/dl (6.4-8.2)
--- NOTE | 2017-07-02 15:55 | CONS ---
DATE OF CONSULTATION: 07/02/2017 HISTORY OF PRESENT ILLNESS: Patient is a 31-year-old male with history of right renal stone, was seen in the hospital 3 days ago with right renal colic. A 4-mm stone was seen at the right UVJ with proximal right hydroureteronephrosis. The patient was sent home on antibiotics and pain medications. Due to lack of funds, the patient was unable to obtain his medication. He is readmitted via the emergency room this morning complaining of right flank pain. Patient does have history of leukemia for which he is in remission at present. He denies any trauma to the flank. He does have some intermittent episodes of gross hematuria. In the emergency room, an ultrasound of his kidneys revealed a right hydronephrosis which was mild in nature. His white count is 10.4, hemoglobin is 14.2 and hematocrit 42.7, his platelets were 186. BUN was 13 and creatinine 0.8. Random glucose was 100. The patient's urine was positive for blood, negative for nitrites. IMPRESSION AT PRESENT: Right ureteral stone. We will strain patient's urine, start patient on Flomax 0.4 mg daily, increase p.o. fluids with ambulation. We will repeat renal sonogram as well as KUB in a.m. If stone persists, we will recommend ureteroscopic laser lithotripsy. Cecil [id number]
[2017-07-02] MEDS ORDERED: MORPHINE SULFATE 10 MG/1 ML *VIAL IVPUSH PRN (16:37)
[2017-07-02] MEDS ORDERED: DEXTROSE 5%-0.45% SALINE 1,000 ML IV SCH (16:45)
--- NOTE | 2017-07-02 20:33 | HP ---
Admitting History and Physical - Smoking History Smoking history: Current some day smoker Have you smoked in the past 12 months: Yes Aproximately how many cigarettes per day: 2 - Alcohol/Substance Use Hx Alcohol Use: No Home Medications - Allergies Allergies/Adverse Reactions: Allergies Allergy/AdvReac Type Severity Reaction Status Date / Time acyclovir Allergy Intermediate Hives Verified 07/02/17 08:24 - Home Medications Home Medications: Ambulatory Orders Ciprofloxacin [Cipro (Restricted To Id)] 500 mg PO Q12H #6 tablet 06/30/17 Ibuprofen 800 mg PO QID PRN #14 tablet 07/02/17 Oxycodone HCl/Acetaminophen [Percocet 5-325 mg Tablet] 1 - 2 tab PO Q6H PRN #5 tab MDD 4 07/02/17 Tamsulosin HCl [Flomax] 0.4 mg PO DAILY #7 cap.er.24h 07/02/17 Physical Examination Vital Signs: Vital Signs Temperature 98.1 F 07/02/17 17:50 Pulse Rate 77 07/02/17 17:50 Respiratory Rate 18 07/02/17 17:50 Blood Pressure 101/55 07/02/17 17:50 O2 Sat by Pulse Oximetry (%) 98 07/02/17 14:35 Labs: CBC, BMP 07/02/17 08:42 07/02/17 08:42
[2017-07-02] MEDS: HEPARIN NA (PORCINE) 5,000 UNITS/ML 1ML VIAL SQ SCH (21:47)
[2017-07-02] MEDS: MORPHINE SULFATE 10 MG/1 ML *VIAL IVPUSH PRN (21:47)
[2017-07-03] MEDS: SODIUM CHLORIDE 0.45% 1,000 ML IV SCH ×2 (01:35→08:47)
[2017-07-03] MEDS ORDERED: ACETAMINOPHEN 325 MG TABLET (FP) PO PRN (03:38)
[2017-07-03 08:18] LABS: BASO % 0.3 % (0-2.0); EOS % 0.4 % (0-4.5); HEMATOCRIT 41.4 % (35.4-49); HEMOGLOBIN 13.7 GM/dL (11.7-16.9); LYMPH % 20.9 % (8-40); MCH 28.7 pg (25.7-33.7); MCHC 33.2 g/dl (32.0-35.9); MEAN CELL VOLUME 86.6 fl (80-96); MEAN PLT VOLUME 8.1 fl (7.5-11.1); MONO % 7.3 % (3.8-10.2); NEUT % 71.1 % (42.8-82.8); PLATELET COUNT 172 K/MM3 (134-434); RBC 4.78 M/mm3 (4.00-5.60); WHITE BLOOD COUNT 9.1 K/mm3 (4.0-10.0)
[2017-07-03 08:21] LABS: CHLORIDE 104 mmol/L (98-107); SODIUM 140 mmol/L (136-145)
[2017-07-03 08:32] LABS: ALBUMIN 3.1 g/dl (3.4-5.0); ALK PHOS 64 U/L (45-117); ANION GAP 8 (8-16); BILIRUBIN,TOTAL 0.8 mg/dL (0.2-1.0); BLOOD UREA NITROGEN 11 mg/dL (7-18); CALCIUM 8.5 mg/dL (8.5-10.1); CO2 28 mmol/L (21-32); CREATININE 0.7 mg/dL (0.7-1.3); GLUCOSE,RANDOM 88 mg/dL (74-106); SGOT/AST 17 U/L (15-37); SGPT/ALT 25 U/L (12-78); TOT PROT 5.9 g/dl (6.4-8.2)
[2017-07-03] MEDS: TAMSULOSIN HCL 0.4 MG CAP.ER.24H (FP) PO SCH (08:38)
[2017-07-03] MEDS: MORPHINE SULFATE 10 MG/1 ML *VIAL IVPUSH PRN ×3 (08:49→21:58)
[2017-07-03] MEDS: HEPARIN NA (PORCINE) 5,000 UNITS/ML 1ML VIAL SQ SCH ×2 (09:37→21:59)
[2017-07-03] MEDS: NICOTINE 14 MG/24 HOURS TOPICAL PATCH TD SCH (16:59)
--- NOTE | 2017-07-03 22:53 | PN ---
Progress Note, Physician History of Present Illness: No new complaints - Current Medication List Current Medications: Active Medications Acetaminophen (Tylenol -) 650 mg PO Q6H PRN PRN Reason: FEVER Last Admin: 07/03/17 03:42 Dose: 650 mg Heparin Sodium (Porcine) (Heparin -) 5,000 unit SQ BID [facility] Last Admin: 07/03/17 21:59 Dose: 5,000 unit Sodium Chloride (1/2 Normal Saline) 1,000 mls @ 100 mls/hr IV ASDIR [facility] Last Admin: 07/03/17 08:47 Dose: 100 mls/hr Levofloxacin (Levaquin -) 500 mg PO DAILY@0600 [facility] Stop: 07/04/17 05:59 Last Admin: 07/03/17 06:19 Dose: 500 mg Morphine Sulfate (Morphine Injection -) 4 mg IVPUSH Q4H PRN PRN Reason: pain Last Admin: 07/03/17 21:58 Dose: 4 mg Nicotine (Nicoderm Patch -) 14 mg TD DAILY [facility] Last Admin: 07/03/17 16:59 Dose: Not Given Tamsulosin HCl (Flomax -) 0.4 mg PO DAILY@0830 [facility] Last Admin: 07/03/17 08:38 Dose: 0.4 mg - Objective Vital Signs: Vital Signs Temperature 98.5 F 07/03/17 17:24 Pulse Rate 88 07/03/17 17:24 Respiratory Rate 18 07/03/17 20:39 Blood Pressure 118/62 07/03/17 17:24 O2 Sat by Pulse Oximetry (%) 97 07/03/17 20:39 Neck: Yes: WNL Cardiovascular: Yes: WNL, Regular Rate and Rhythm Respiratory: Yes: WNL, Regular, CTA Bilaterally Gastrointestinal: Yes: WNL, Normal Bowel Sounds, Soft, Abdomen, Obese Labs: CBC, BMP 07/03/17 06:00 07/03/17 06:00 Problem List - Problems (1) Hydronephrosis, right Assessment/Plan: Ulrasouns showed increased rt hydronephrosis Due to urethral stone Cont IVF/flomax Morphine for pain As per uro Possible laser in am Possible dc planning after procedure Code(s): N13.30 - UNSPECIFIED HYDRONEPHROSIS
[2017-07-04] MEDS: SODIUM CHLORIDE 0.45% 1,000 ML IV SCH (03:08)
[2017-07-04] MEDS: TAMSULOSIN HCL 0.4 MG CAP.ER.24H (FP) PO SCH (08:42)
--- NOTE | 2017-07-04 09:13 | PN ---
Progress Note (short form) - Note Progress Note: 32 y/o M w/ chronic rt hydroenephrosis. No evidence of stone on ultrasound, ct, or KUB. No acute tenderness, fever, or hematuria. Impression- asymptomatic rt mild hydronephrosis. Pt cleared urologically, will send home with kater and flomichelle. Will reevaluate next week in office.
[2017-07-04] MEDS: HEPARIN NA (PORCINE) 5,000 UNITS/ML 1ML VIAL SQ SCH (10:42)
[2017-07-04] MEDS: NICOTINE 14 MG/24 HOURS TOPICAL PATCH TD SCH (10:43)
[2017-07-04 17:22] VITALS: BP 128/75; PULSE 92; TEMP 98.5
--- NOTE | 2017-07-04 18:09 | PN ---
Progress Note (short form) - Note Progress Note: UROLOGY NOTE. Pt. may be dischared home if ok with dr larsen
--- NOTE | 2017-07-04 20:09 | DS ---
Physical Examination Vital Signs: Vital Signs Temperature 98.5 F 07/04/17 17:21 Pulse Rate 92 H 07/04/17 17:21 Respiratory Rate 18 07/04/17 17:21 Blood Pressure 128/75 07/04/17 17:21 O2 Sat by Pulse Oximetry (%) 96 07/04/17 09:00 Labs: CBC, BMP 07/03/17 06:00 07/03/17 06:00 Discharge Summary Reason For Visit: INTRACTABLE ABD PAIN,CALCULUS OF URETER Current Active Problems Hydronephrosis, right (Acute) Intractable abdominal pain (Acute) Right kidney stone (Acute) Condition: Good - Instructions Diet, Activity, Other Instructions: Regular diet See Dr Reina in 1 week Disposition: HOME - Home Medications Comprehensive Discharge Medication List: Ambulatory Orders Ciprofloxacin [Cipro (Restricted To Id)] 500 mg PO Q12H #6 tablet 06/30/17 Ibuprofen 800 mg PO QID PRN #14 tablet 07/02/17 Oxycodone HCl/Acetaminophen [Percocet 5-325 mg Tablet] 1 - 2 tab PO Q6H PRN #5 tab MDD 4 07/02/17
== END 2017-07-04 20:56 | disposition home or self-care (01) | DRG 465 ==
LOC: JER 08:16 → JERBED 12:33 → J7W 14:14 → OBSVTOIN 16:35
PROVIDERS: ADMIT Internal Medicine; ATTEND Internal Medicine
DX: N13.2 Hydronephrosis with renal and ureteral calculous obstruction (principal); F17.210 Nicotine dependence, cigarettes, uncomplicated; C95.91 Leukemia, unspecified, in remission; R31.0 Gross hematuria
CPT/HCPCS: 36415; 74018-TC-FY; 76775-TC; 76856-TC; 80053; 81003; 81015; 83690; 85025; 87086; 99285-25; G0378; J1644

== ENCOUNTER 2017-10-19 18:24 | Emergency (ER) | payer OTHER ==
[2017-10-19 18:29] VITALS: BP 142/78; PULSE 88; TEMP 98.1; BMI 47.7
--- NOTE | 2017-10-19 18:47 | PDOC ---
History of Present Illness - General Chief Complaint: Pain Stated Complaint: FLU SYMPTOMS Time Seen by Provider: 10/19/17 18:34 History Source: Patient Exam Limitations: No Limitations Past History - Past Medical History Allergies/Adverse Reactions: Allergies Allergy/AdvReac Type Severity Reaction Status Date / Time acyclovir Allergy Intermediate Hives Verified 10/19/17 18:26 Home Medications: Ambulatory Orders Ciprofloxacin [Cipro (Restricted To Id)] 500 mg PO Q12H #6 tablet 06/30/17 Ibuprofen 800 mg PO QID PRN #14 tablet 07/02/17 Oxycodone HCl/Acetaminophen [Percocet 5-325 mg Tablet] 1 - 2 tab PO Q6H PRN #5 tab MDD 4 07/02/17 Cancer: Yes (AML (REMISSION 2010)) COPD: No GI Disorders: Yes (renal stones (long time ago)) - Immunization History Immunization Up to Date: Yes - Suicide/Smoking/Psychosocial Hx Smoking Status: Yes Smoking History: Never smoked Have you smoked in the past 12 months: Yes Number of Cigarettes Smoked Daily: 5 Cigars Per Day: 0 Information on smoking cessation initiated: No 'Breaking Loose' booklet given: 07/02/17 Hx Alcohol Use: No Drug/Substance Use Hx: No Substance Use Type: None Trauma Specific PMHX - Complaint Specific PMHX Arthritis: No Back Injury: Yes Neck Injury: No Hx Sacro Iliac Joint Dysfunction: No *Physical Exam - Vital Signs Last Vital Signs Temp Pulse Resp BP Pulse Ox 98.1 F 88 18 142/78 97 10/19/17 18:26 10/19/17 18:26 10/19/17 18:26 10/19/17 18:26 10/19/17 18:26
--- NOTE | 2017-10-19 19:28 | PDOC ---
History of Present Illness - General Chief Complaint: Pain Stated Complaint: FLU SYMPTOMS Time Seen by Provider: 10/19/17 18:34 History Source: Patient Exam Limitations: No Limitations - History of Present Illness Initial Comments: 10/19/17 19:34 This is a 32-year-old male with past medical history of leukemia (7 years of remission), ages the to presents emergency Department with penile discharge and dysuria status post unprotected oral and vaginal intercourse approximately 3 weeks ago. Patient states she has had to female partners over the past month. One of the partner is HSV-2 positive and has been in a long-term relationship with this patient. The patient has history of HSV-2 and unknown other history. Past History - Past Medical History Allergies/Adverse Reactions: Allergies Allergy/AdvReac Type Severity Reaction Status Date / Time acyclovir Allergy Intermediate Hives Verified 10/19/17 18:26 Home Medications: Ambulatory Orders Ibuprofen 800 mg PO QID PRN #14 tablet 07/02/17 Valacyclovir HCl [Valtrex -] 1,000 mg PO TID 10/19/17 Cancer: Yes (AML (REMISSION 2010)) COPD: No GI Disorders: Yes (renal stones (long time ago)) - Immunization History Immunization Up to Date: Yes - Suicide/Smoking/Psychosocial Hx Smoking Status: Yes Smoking History: Never smoked Have you smoked in the past 12 months: Yes Number of Cigarettes Smoked Daily: 5 Cigars Per Day: 0 Information on smoking cessation initiated: No 'Breaking Loose' booklet given: 07/02/17 Hx Alcohol Use: No Drug/Substance Use Hx: No Substance Use Type: None Abd/GI Specific PMHX - Complaint Specific PMHX Colitis: No Diverticulitis: No Gall Bladder Disease: No GERD: No Hepatitis: No Irritable Bowel Synd (IBS): No Pancreatitis: No GI Ulcer Disease: No Review of Systems - Review of Systems Able to Perform ROS?: Yes Is the patient limited Polish proficient: No Constitutional: No: Symptoms Reported HEENTM: No: Symptoms Reported Respiratory: No: Symptoms reported Cardiac (ROS): No: Symptoms Reported ABD/GI: No: Symptoms Reported : Yes: See HPI Musculoskeletal: No: Symptoms Reported Integumentary: No: Symptoms Reported Neurological: No: Symptoms reported Endocrine: No: Symptoms Reported Hematologic/Lymphatic: No: Symptoms Reported *Physical Exam - Vital Signs Last Vital Signs Temp Pulse Resp BP Pulse Ox 98.1 F 88 18 142/78 97 10/19/17 18:26 10/19/17 18:26 10/19/17 18:26 10/19/17 18:26 10/19/17 18:26 - Physical Exam Gastrointestinal/Abdominal: positive: Normal Bowel Sounds, Soft. negative: Tender Male Genitalia: positive: normal genitalia, discharge. negative: testicular tenderness, testicular mass, epididymus tender, inguinal hernia, CVAT Musculoskeletal: positive: Normal Inspection. negative: CVA Tenderness Medical Decision Making - Medical Decision Making 10/19/17 19:36 A/P: 32-year-old male with dysuria and penile discharge status post unprotected oral and vaginal intercourse with a female approximately 3 weeks ago Uncircumcised penis with clear urethral discharge noted. Testicles without erythema, masses or tenderness present. Cremasteric reflex present bilaterally No hernias noted GC swab, HIV testing, RPR, treat for presumed gonorrhea and chlamydia 10/19/17 20:12 Rapid HIV testing is negative. I will discharge the patient home after receiving azithromycin and ceftriaxone. Condom use has been discussed with patient who verbalizes understanding *DC/Admit/Observation/Transfer Diagnosis at time of Disposition: Penile discharge, without blood - Discharge Dispostion Disposition: HOME Condition at time of disposition: Stable Decision to Admit order: No - Referrals Referrals: Jaguar Reina MD [Primary Care Provider] - - Patient Instructions Additional Instructions: You been treated today with azithromycin 1 g by mouth for treatment of presumed chlamydia You have been treated with Rocephin 250 mg injection for treatment of presumned gonorrhea The syphilis test, gonorrhea and chlamydia testing will not be completed for the next few days. Your HIV testing is negative. You may call and leave message for return phone call with lab results. Be sure to be clear with your name, birthdate, and phone number Always use condoms with the partners Followup with your PMD in one week for reevaluation and retesting. - Post Discharge Activity
[2017-10-19] MEDS ORDERED: AZITHROMYCIN 1 GM PACKET PO ONE (20:11)
== END 2017-10-19 20:23 | disposition home or self-care (01) ==
LOC: JERFT 18:24
DX: R36.9 Urethral discharge, unspecified (principal); Z86.19 Personal history of other infectious and parasitic diseases; C94.81 Other specified leukemias, in remission
CPT/HCPCS: 36415; 86593; 87081; 87389; 87491; 87591; 96372; 99281-25

== ENCOUNTER 2017-10-31 16:54 | Emergency (ER) | payer OTHER ==
[2017-10-31 17:03] VITALS: BP 122/54; PULSE 86; TEMP 98.2; BMI 46.2
--- NOTE | 2017-10-31 17:09 | PDOC ---
Rapid Medical Evaluation Time Seen by Provider: 10/31/17 17:00 Medical Evaluation: Allergies Allergy/AdvReac Type Severity Reaction Status Date / Time acyclovir Allergy Intermediate Hives Verified 10/31/17 16:59 10/31/17 17:00 Pt c/o: bump on scrotum and near mons pubis in hair x 4 days, hx hsv 1 year ago and was treated at that time Pt on brief exam: vss, noted 1 cm none erythematous raised non tender papule to base on penis in hair region Pt ordered for: none Pt to proceed to the ED Discharge Disposition - Diagnosis Bumps on skin - Referrals - Patient Instructions - Post Discharge Activity
--- NOTE | 2017-10-31 17:34 | PDOC ---
History of Present Illness - General Chief Complaint: Rash Stated Complaint: MALE ISSUE Time Seen by Provider: 10/31/17 17:00 History Source: Patient Exam Limitations: No Limitations - History of Present Illness Initial Comments: 10/31/17 17:25 This is a 32-year-old male presents emergency Department with 2 lesions on his genitals for the past one day. Patient states she has a history of herpes simplex but is only have one outbreak since his initial diagnosis. Patient was seen and evaluated here for STI is on 527 and was negative for HIV, gonorrhea, chlamydia and syphilis at that time. Patient was treated for presumed gonorrhea and chlamydia at that time. Patient denies any prodromal symptoms over the past 2 weeks. Patient's significant other is here for evaluation for one lesion noted to her abdomen. Past History - Past Medical History Allergies/Adverse Reactions: Allergies Allergy/AdvReac Type Severity Reaction Status Date / Time acyclovir Allergy Intermediate Hives Verified 10/31/17 16:59 Home Medications: Ambulatory Orders Ibuprofen 800 mg PO QID PRN #14 tablet 07/02/17 Mupirocin Ointment [Bactroban 2% Ointment -] 1 applic TP TID #30 applic Valacyclovir HCl [Valtrex -] 1,000 mg PO DAILY #5 tablet 10/31/17 Cancer: Yes (AML (REMISSION 2010)) COPD: No GI Disorders: Yes (renal stones (long time ago)) Other medical history: HSV2 - Immunization History Immunization Up to Date: Yes - Suicide/Smoking/Psychosocial Hx Smoking Status: Yes Smoking History: Current every day smoker Have you smoked in the past 12 months: Yes Number of Cigarettes Smoked Daily: 7 Cigars Per Day: 0 Information on smoking cessation initiated: Yes 'Breaking Loose' booklet given: 10/31/17 Hx Alcohol Use: No Drug/Substance Use Hx: No Substance Use Type: None Review of Systems - Review of Systems Able to Perform ROS?: Yes Is the patient limited Georgian proficient: No Constitutional: No: Symptoms Reported HEENTM: No: Symptoms Reported Respiratory: No: Symptoms reported Cardiac (ROS): No: Symptoms Reported ABD/GI: No: Symptoms Reported : No: Symptoms Reported Musculoskeletal: No: Symptoms Reported Integumentary: Yes: See HPI Neurological: No: Symptoms reported *Physical Exam - Vital Signs Last Vital Signs Temp Pulse Resp BP Pulse Ox 98.2 F 86 18 122/54 100 10/31/17 17:01 10/31/17 17:01 10/31/17 17:01 10/31/17 17:01 10/31/17 17:01 - Physical Exam General Appearance: Yes: Appropriately Dressed. No: Apparent Distress Male Genitalia: positive: normal genitalia, other (2 flesh-colored papules present to the genitals. Lesion #1 is at the base of the penis in the mons pubis. Second lesion is on the left side of the scrotum. Both lesions have a hair growing out of the middle of the lesion. No erythema is noted. No fluctuance is present.). negative: discharge, testicular tenderness, testicular mass, epididymus tender, inguinal hernia, CVAT, hematuria Medical Decision Making - Medical Decision Making 10/31/17 17:28 A/P: 32-year-old male with history of HSV-2 with 2 lesions noted to the genitals 2 flesh-colored papular lesions noted to the genitals. Lesion #1 is in the mons pubis at the base of the penis Lesion #2 is on the inferior side of the left scrotum Both lesions are subcentimeter with hair follicle noted in the center of both lesions Lesions are nontender to palpation and nonerythematous. Given the appearance of lesions and absence of prodromal symptoms, this is likely not herpes simplex outbreak. Although lesions do not appear erythematous I will treat for folliculitis at this time. Patient stated ALLERGY to acyclovir which she states was alopecia when taking a. Patient has taken Valtrex in the past without any difficulty. I will give patient prescription in for Valtrex filled lesions become painful. I'll treat the patient with mupirocin 2% ointment applied to lesions 3 times a day for the next 10 days. Patient verbalizes understanding of discharge instructions. *DC/Admit/Observation/Transfer Diagnosis at time of Disposition: Folliculitis - Discharge Dispostion Disposition: HOME Condition at time of disposition: Stable Decision to Admit order: No - Prescriptions Prescriptions: Mupirocin Ointment [Bactroban 2% Ointment -] 1 applic TP TID #30 applic Valacyclovir HCl [Valtrex -] 1,000 mg PO DAILY #5 tablet - Referrals Referrals: Jaguar Reina MD [Primary Care Provider] - - Patient Instructions Additional Instructions: Should the your bumps become painful, take Valtrex 1000 mg every day for 5 days Apply mupirocin ointment to lesions 3 times a day for the next 10 days Wear condoms at all times when having intercourse Thank you very much for trismus provider emergent health care needs. - Post Discharge Activity
== END 2017-10-31 17:41 | disposition home or self-care (01) ==
LOC: JERFT 16:54
DX: L73.8 Other specified follicular disorders (principal); Z86.19 Personal history of other infectious and parasitic diseases
CPT/HCPCS: 99281-25

== ENCOUNTER 2019-01-14 10:28 | Emergency (ER) | payer OTHER ==
[2019-01-14 10:33] VITALS: BP 108/69; PULSE 89; TEMP 98; BMI 47.0
[2019-01-14] MEDS ORDERED: IBUPROFEN 400 MG TABLET (FP) PO ONE ×2 (11:22→11:26)
--- NOTE | 2019-01-14 11:29 | PDOC ---
History of Present Illness - General Chief Complaint: Cold Symptoms Stated Complaint: FEVER Time Seen by Provider: 01/14/19 11:07 History Source: Patient - History of Present Illness Timing/Duration: reports: other Past History - Past Medical History Allergies/Adverse Reactions: Allergies Allergy/AdvReac Type Severity Reaction Status Date / Time acyclovir Allergy Intermediate Hives Verified 01/14/19 10:33 Home Medications: Ambulatory Orders Ibuprofen 800 mg PO QID PRN #14 tablet 07/02/17 Valacyclovir HCl [Valtrex -] 1,000 mg PO DAILY #5 tablet 10/31/17 Clindamycin [Cleocin -] 450 mg PO TID 5 Days #23 capsule MDD 4.5 Tab 11/27/17 Cancer: Yes (AML (REMISSION 2010)) COPD: No GI Disorders: Yes (renal stones (long time ago)) - Immunization History Immunization Up to Date: Yes - Suicide/Smoking/Psychosocial Hx Smoking Status: Yes Smoking History: Never smoked Have you smoked in the past 12 months: Yes Number of Cigarettes Smoked Daily: 7 Cigars Per Day: 0 Information on smoking cessation initiated: No 'Breaking Loose' booklet given: 11/27/17 Hx Alcohol Use: No Drug/Substance Use Hx: No Substance Use Type: None Review of Systems - Review of Systems Constitutional: Yes: Malaise. No: Chills, Fever HEENTM: Yes: Throat Pain Respiratory: No: Cough, Shortness of Breath ABD/GI: No: Nausea, Vomiting Neurological: No: Headache, Dizziness *Physical Exam - Vital Signs Last Vital Signs Temp Pulse Resp BP Pulse Ox 98 F 89 19 108/69 96 01/14/19 10:31 01/14/19 10:31 01/14/19 10:31 01/14/19 10:31 01/14/19 10:31 - Physical Exam Comments: 01/14/19 11:35 appears uncomfortable General Appearance: Yes: Appropriately Dressed. No: Apparent Distress HEENT: positive: Normal ENT Inspection, Normal Voice, TMs Normal. negative: Pharynx Normal, Scleral Icterus (R), Scleral Icterus (L), Muffled/Hoarse voice Neck: positive: Supple. negative: Lymphadenopathy (R), Lymphadenopathy (L) Respiratory/Chest: positive: Lungs Clear, Normal Breath Sounds. negative: Respiratory Distress Cardiovascular: positive: Regular Rate, S1, S2 Integumentary: positive: Dry, Warm Neurologic: positive: Fully Oriented, Alert, Normal Mood/Affect ED Treatment Course - LABORATORY CBC & Chemistry Diagram: 01/14/19 11:24 - Medications Given in the ED: ED Medications Discontinued Medications Generic Name Dose Route Start Last Admin Trade Name Liam PRN Reason Stop Dose Admin Ibuprofen 800 mg 01/14/19 11:22 01/14/19 11:23 Motrin - PO 01/14/19 11:23 800 mg ONCE ONE Administration Medical Decision Making - Medical Decision Making 01/14/19 11:26 33 yo M, h/o AML, s/p chemo 8 years ago, has been in remission since, here w/ sore throat w/ cough and malaise x 2 days. No sob, CP, f/c See exam Viral syndrome Harry uncomfortable but stable w/ unremarkable exam -rapid strep -pt req CBC given h/o AML -pain control -anticipate dc home 01/14/19 13:02 Labs wnl. Dc w/ supportive tx and PMD f/u as needed *DC/Admit/Observation/Transfer Diagnosis at time of Disposition: Viral syndrome - Discharge Dispostion Disposition: HOME Condition at time of disposition: Improved - Referrals Referrals: Jaguar Reina MD [Primary Care Provider] - - Patient Instructions Printed Discharge Instructions: DI for Viral Syndrome Additional Instructions: You labs and strep test were negative Rest, drink fluids and take motrin for pain as needed Follow up with your PMD as needed - Post Discharge Activity Forms/Work/School Notes: Back to Work
[2019-01-14 12:19] LABS: BASO % 0.4 % (0-2.0); EOS % 0.8 % (0-4.5); HEMATOCRIT 44.9 % (35.4-49); HEMOGLOBIN 15.4 GM/dL (11.7-16.9); LYMPH % 22.9 % (8-40); MCH 30.9 pg (25.7-33.7); MCHC 34.2 g/dl (32.0-35.9); MEAN CELL VOLUME 90.2 fl (80-96); MEAN PLT VOLUME 8.3 fl (7.5-11.1); MONO % 7.9 % (3.8-10.2); PLATELET COUNT 233 K/MM3 (134-434); RBC 4.98 M/mm3 (4.00-5.60); RDW 14.1 % (11.9-15.9); WHITE BLOOD COUNT 10.7 K/mm3 (4.0-10.0)
== END 2019-01-14 13:17 | disposition home or self-care (01) ==
LOC: JERFT 10:28
DX: B34.9 Viral infection, unspecified (principal); Z85.6 Personal history of leukemia; Z92.21 Personal history of antineoplastic chemotherapy
CPT/HCPCS: 36415; 85025; 87070; 87880; 99281-25

== ENCOUNTER 2019-06-11 15:43 | Emergency (ER) | payer OTHER ==
--- NOTE | 2019-06-11 15:48 | PDOC ---
Rapid Medical Evaluation Time Seen by Provider: 06/11/19 15:47 Medical Evaluation: Allergies Allergy/AdvReac Type Severity Reaction Status Date / Time acyclovir Allergy Intermediate Hives Verified 01/14/19 10:33 06/11/19 15:47 I performed a brief in-person evaluation of this patient. 33-year-old male smoker with hx AML s/p chemotherapy 7 yrs ago, no HSCT. Presents today with two weeks of chills, nightsweats, dry cough. No fevers. 25 lb weight loss in 2 months, although states has been trying to lose weight. Pertinent physical exam findings: Alert, oriented, no distress. Rhinorrhea. Lungs CTAB. RRR, S1/S2, mild tachycardia, no murmurs. Abd soft, non-tender, non-distended. I have ordered the following: CBC with diff, CMP CXR Patient to proceed to the ED for further evaluation. Discharge Disposition - Diagnosis Chills (without fever) - Discharge Dispostion Condition at time of disposition: Stable - Referrals - Patient Instructions - Post Discharge Activity
[2019-06-11 15:51] VITALS: BP 113/68; PULSE 104; TEMP 98.4; BMI 41.8
--- NOTE | 2019-06-11 16:20 | PDOC ---
History of Present Illness - General Chief Complaint: Cold Symptoms Stated Complaint: COLD SYMPTOMS Time Seen by Provider: 06/11/19 15:47 History Source: Patient Exam Limitations: Clinical Condition - History of Present Illness Initial Comments: 06/11/19 16:23 Patient with past medical history of leukemia on remission 7 years ago presented with complaint of 2 weeks history of persistent dry cough, nasal congestion, runny nose, body aches and malaise which feels like flulike symptoms but report has never had any fevers. Patient report has not been taking anything for symptoms. Patient reporting symptoms similar to when he had his leukemia symptoms as he has also been having night sweats for 2 weeks. Denies nausea, vomiting, diarrhea, constipation. Denies any other symptoms Is this a multiple visit Asthma Patient?: No Timing/Duration: other (2 weeks) Past History - Past Medical History Allergies/Adverse Reactions: Allergies Allergy/AdvReac Type Severity Reaction Status Date / Time acyclovir Allergy Intermediate Hives Verified 01/14/19 10:33 Home Medications: Ambulatory Orders Ibuprofen 800 mg PO QID PRN #14 tablet 07/02/17 Valacyclovir HCl [Valtrex -] 1,000 mg PO DAILY #5 tablet 10/31/17 Clindamycin [Cleocin -] 450 mg PO TID 5 Days #23 capsule MDD 4.5 Tab 11/27/17 Azithromycin [Zithromax 250mg Tablets -] 250 mg PO UTDICT #6 tab 06/11/19 Benzonatate [Tessalon Pearls -] 100 mg PO Q8H PRN #21 capsule 06/11/19 Ipratropium Waldo 2 spray NS BID PRN #1 spray 06/11/19 Montelukast Na [Singulair -] 10 mg PO HS #7 tablet 06/11/19 Cancer: Yes (AML (REMISSION 2010)) COPD: No GI Disorders: Yes (renal stones (long time ago)) - Immunization History Immunization Up to Date: Yes - Psycho Social/Smoking Cessation Hx Smoking Status: Yes Smoking History: Current every day smoker Have you smoked in the past 12 months: Yes Number of Cigarettes Smoked Daily: 7 Cigars Per Day: 0 Information on smoking cessation initiated: No 'Breaking Loose' booklet given: 11/27/17 Hx Alcohol Use: No Drug/Substance Use Hx: No Substance Use Type: None Review of Systems - Review of Systems Able to Perform ROS?: Yes Is the patient limited Faroese proficient: No Constitutional: Yes: Chills, Malaise, Night Sweats. No: Fever HEENTM: Yes: Symptoms Reported, See HPI, Nose Congestion. No: Eye Pain, Blurred Vision, Tearing, Recent change in vision, Double Vision, Cataracts, Ear Pain, Ocular Prothesis, Ear Discharge, Nose Pain, Tinnitus, Nose Bleeding, Hearing Loss, Throat Pain, Throat Swelling, Mouth Pain, Dental Problems, Difficulty Swallowing, Mouth Swelling, Other Respiratory: Yes: Symptoms reported, See HPI, Cough. No: Orthopnea, Shortness of Breath, SOB with Exertion, SOB at Rest, Stridor, Wheezing, Productive cough, Hemoptysis, Other Cardiac (ROS): No: Symptoms Reported, See HPI, Chest Pain, Edema, Irregular Heart Rate, Lightheadedness, Palpitations, Syncope, Chest Tightness, Other ABD/GI: No: Symptoms Reported, See HPI, Abd. Pain w/ defecation, Blood Streaked Bowels, Constipated, Diarrhea, Nausea, Rectal Bleeding, Vomiting, Abdominal cramping Musculoskeletal: No: Symptoms Reported Integumentary: No: Symptoms Reported, Rash Neurological: No: Symptoms reported, Headache, Weakness, Unsteady Gait, Dizziness All Other Systems: Reviewed and Negative *Physical Exam - Vital Signs Last Vital Signs Temp Pulse Resp BP Pulse Ox 98.4 F 104 H 18 113/68 98 06/11/19 15:48 06/11/19 15:48 06/11/19 15:48 06/11/19 15:48 06/11/19 15:48 - Physical Exam 06/11/19 16:19 GENERAL: Well developed, well nourished. Awake and alert. No acute distress. HEENT: Normocephalic, atraumatic. PERRLA, EOMI. No conjunctival pallor. Sclera are non-icteric. Moist mucous membranes. Oropharynx is clear. NECK: Supple. Full ROM. CARDIOVASCULAR: Regular rate and rhythm. No murmurs, rubs, or gallops. Distal pulses are 2+ and symmetric. PULMONARY: No evidence of respiratory distress. Lungs clear to auscultation bilaterally. No wheezing, rales or rhonchi. ABDOMINAL: Soft. Non-tender. Non-distended. No rebound or guarding. No organomegaly. Normoactive bowel sounds. MUSCULOSKELETAL Normal range of motion at all joints. SKIN: Warm and dry. Normal capillary refill. No rashes. No jaundice. NEUROLOGICAL: Alert, awake, appropriate. Gait is normal without ataxia. PSYCHIATRIC: Cooperative. Good eye contact. Appropriate mood General Appearance: Yes: Nourished, Appropriately Dressed. No: Apparent Distress ED Treatment Course - LABORATORY CBC & Chemistry Diagram: 06/11/19 16:17 06/11/19 16:17 Medical Decision Making - Medical Decision Making 06/11/19 16:26 Patient with past medical history of leukemia on remission 7 years ago presented with complaint of 2 weeks history of persistent dry cough, nasal congestion, runny nose, body aches and malaise which feels like flulike symptoms but report has never had any fevers. Patient report has not been taking anything for symptoms. Patient reporting symptoms similar to when he had his leukemia symptoms as he has also been having night sweats for 2 weeks. Denies nausea, vomiting, diarrhea, constipation. Denies any other symptoms Exam significant for bilateral nasal congestion. Patient in no acute distress. Mild expiratory wheeze to lung bases to auscultation bilateral. Normal cardio exam. Symptoms likely viral URI versus pneumonia versus bronchitis. Patient requesting basic blood work to make sure he does not have flare of his leukemia. Chest x-ray ordered to rule out acute chest pathology. CBC and chemistry lab ordered 06/11/19 18:05 Checks x-ray shows no acute infiltrate or pathology. CBC and chemistry lab unremarkable. Patient symptoms likely bronchitis. Patient stable for discharge on Tessalon Perles for cough and Z-Smith antibiotics for 5 days with Singulair and Atrovent nasal spray for nasal congestion with PCP follow-up Discharge - Discharge Information Problems reviewed: Yes Clinical Impression/Diagnosis: Chills (without fever), Malaise URI (upper respiratory infection) Qualifiers: URI type: unspecified URI Qualified Code(s): J06.9 - Acute upper respiratory infection, unspecified Condition: Stable Disposition: HOME - Admission No - Additional Discharge Information Prescriptions: Azithromycin [Zithromax 250mg Tablets -] 250 mg PO UTDICT #6 tab Benzonatate [Tessalon Pearls -] 100 mg PO Q8H PRN #21 capsule PRN Reason: Cough Ipratropium Waldo 2 spray NS BID PRN #1 spray PRN Reason: nasal congestion Montelukast Na [Singulair -] 10 mg PO HS #7 tablet - Follow up/Referral Referrals: Jaguar Reina MD [Primary Care Provider] - - Patient Discharge Instructions Patient Printed Discharge Instructions: DI for Acute Bronchitis Additional Instructions: Your chest x-ray is normal. Your blood work is normal as well. Your symptoms likely caused by upper respiratory infection. Take prescribed medication as prescribed for cough and congestion. Increase fluid intake. Follow-up with primary care - Post Discharge Activity
[2019-06-11 17:34] LABS: BASO % 0.6 % (0-2.0); EOS % 0.5 % (0-4.5); HEMATOCRIT 47.9 % (35.4-49); HEMOGLOBIN 16.2 GM/dL (11.7-16.9); LYMPH % 27.5 % (8-40); MCH 30.9 pg (25.7-33.7); MCHC 33.9 g/dl (32.0-35.9); MEAN PLT VOLUME 8.5 fl (7.5-11.1); MONO % 8.4 % (3.8-10.2); PLATELET COUNT 229 K/MM3 (134-434); RBC 5.26 M/mm3 (4.00-5.60); RDW 13.8 % (11.9-15.9); WHITE BLOOD COUNT 7.3 K/mm3 (4.0-10.0)
[2019-06-11 17:59] LABS: ALBUMIN 4.2 g/dl (3.4-5.0); BILIRUBIN,TOTAL 0.3 mg/dL (0.2-1); BLOOD UREA NITROGEN 9.7 mg/dL (7-18); CALCIUM 9.4 mg/dL (8.5-10.1); CREATININE 0.7 mg/dL (0.55-1.3); POTASSIUM 4.3 mmol/L (3.5-5.1); TOT PROT 8.1 g/dl (6.4-8.2)
== END 2019-06-11 18:03 | disposition home or self-care (01) ==
LOC: JERFT 15:43
DX: J06.9 Acute upper respiratory infection, unspecified (principal); C94.81 Other specified leukemias, in remission; Z88.8 Allergy status to other drugs, medicaments and biological substances
CPT/HCPCS: 36415; 71046-TC-FY; 80053; 85025; 99282-25

== ENCOUNTER 2020-02-28 09:43 | Emergency (ER) | payer OTHER ==
[2020-02-28 09:49] VITALS: BMI 48.6
[2020-02-28] MEDS ORDERED: KETOROLAC TROMETHAMINE 30 MG/1 ML VIAL IVPUSH ONE (09:57)
[2020-02-28] MEDS ORDERED: SODIUM CHLORIDE 1,000 ML IV ONE (09:57)
--- OUTSIDE RECORDS SUMMARY | 2020-02-28 10:09 | XMS ---
:1985 Author Organization [facility] Care Team Providers Name Role Phone Augustine Zaidi MD Unavailable Unavailable MADALYN Unavailable Unavailable Keshav Miller Unavailable Unavailable AKASH JUNE Unavailable Unavailable EMERGENCY SERVICE, X Unavailable Unavailable MELISSA Unavailable Unavailable NIRANJAN GARCES Unavailable Unavailable Re-disclosure Warning The records that you are about to access may contain information from federally- assisted alcohol or drug abuse programs. If such information is present, then the following federally mandated warning applies: This information has been disclosed to you from records protected by federal confidentiality rules (42 CFR part 2). The federal rules prohibit you from making any further disclosure of this information unless further disclosure is expressly permitted by the written consent of the person to whom it pertains or as otherwise permitted by 42 CFR part 2. A general authorization for the release of medical or other information is NOT sufficient for this purpose. The Federal rules restrict any use of the information to criminally investigate or prosecute any alcohol or drug abuse patient.The records that you are about to access may contain highly sensitive health information, the redisclosure of which is protected by Article 27-F of the [facility] Public Health law. If you continue you may haveaccess to information: Regarding HIV / AIDS; Provided by facilities licensed or operated by the [facility] Office of Mental Health; or Provided by the [facility] Office for People With Developmental Disabilities. If such information is present, then the following [facility] mandated warning applies: This information has been disclosed to you from confidential records which are protected by state law. State law prohibits you from making any further disclosure of this information without the specific written consent of the person to whom it pertains, or as otherwise permitted by law. Any unauthorized further disclosure in violation of state law may result in a fine or senior care sentence or both. A general authorization for the release of medical or other information is NOT sufficient authorization for further disclosure. Allergies and Adverse Reactions Type Description Substance Reaction Status Data Source(s ) Drug allergy No Known Allergies No Known NO KNOWN [facility] Allergies [facility] Drug allergy No Known Drug No Known Drug [facility] Allergies Allergies [facility] on Encounters Encounter Providers Location Date Indications Data Source(s ) Outpatient Attender: 01/01/2020 03.818 [facility] job MELISSAAdmitter: 06:00:00 AM Health Care SHARONRICKReferrer: EDT Corporat ion MELISSA Z03.818 Outpatient Attender: Keshav 12/31/2019 03:30:00 COVID TESTI [facility] PM EDT [facility] COVID TESTING [place] Outpatient Attender: 12/29/2019 06:00:00 Z03.818 [facility] GARRICKAdmitter: AM EDT Health C are MELISSAReferrer: [employer] Z03.818 Outpatient Attender: 12/22/2019 06:00:00 03.818 [facility] MELISSAAdmitter: AM EDT Health C are MELISSAReferrer: [employer] Z03.818 Emergency Attender: Augustine 12/19/2019 03:19:[facility] - 12/19/2019 Hospi jen 04:13:00 PM EDT COVID TESTING [place] Patient discharged. Outpatient Attender: KARAdmitter: 11/06/2019 01:40:00 Z03. 818 [facility] MADALYN AM [facility] Z03.818 Outpatient Attender: KARAdmitter: 10/30/2019 02:35:00 03. 8 [facility] MADALYN PM [facility] Z03.818 Outpatient Attender: 10/24/2019 11:54:00 03.8 [facility] SHARONRICKAdmitter: AM EDT Health C are MELISSAReferrer: [employer] Z03.818 Emergency Attender: EMERGENCY 06/30/2019 ABDOMINAL PAIN, [facility] SERVICE, XAttender: 01:43:00 PM EST [facility]ST [facility] BRIDGET GARCESdmitter: NIRANJAN Hernadez ABDOMINAL PAIN, CHEST JOMAR Emergency Attender: SLADE, 05/17/2019 SORE THROAT [facility] RICHARDAttender: 03:10:00 PM EST FACIAL [facility] EMERGENCY SERVICE, Corpor ation XAdmitter: AKASH JUNE SORE THROAT FACIAL ABCESS Medications Medication Brand Start Product Dose Route Administrative Pharm[facility] Indications Reaction Description Data Name Date Form Instructions Instructions Source(s) valACYclovi UNK complet valACYcl ovir [place] r HCl 1 GM 2019 MG ed HCl 1 GM r Cou nty Oral Tab 04:59: Oral Tablet He alth 36 PM TAKE 1 Care EST TABLET EVERY Corpora lazaro 12 HOURS n DAILY. Dispense: 20 Supervising physician: KARINA Suarez Cephalexin Cephal UNK complet Cephale starla [place] 500 MG Oral exin 2019 MG ed 500 MG Oral r County Tablet 500 MG 04:39: Tablet TAKE He alth Oral 44 PM 1 TABLET BY Care Tablet EST MOUTH TWICE Corpor atio A DAY n Dispense: 14 Supervising physician: KARINA Suarez Percocet UNK complet Percocet [place] 5-325 MG 2018 MG ed 5-325 MG r Count y Oral Tablet 08:42: Oral Tablet Health 08 AM TAKE 1 Care EDT TABLET EVERY Corpora lazaro 4 TO 6 HOURS n NEEDED FOR PAIN. Dispense: 10 Ciprofloxac UNK complet Ciproflo xaci [place] in 500 MG 2016 MG ed n 500 MG r Coun ty Oral Tabl 12:36: Oral Tablet H ealth 01 AM [Cipro] Take Care EST one (1) Corporatio tablet by n mouth two times per day for 3 days FINISH ALL OF THIS MEDICATION Dispense: 6 Naprosyn UNK complet Naprosyn [place] 375mg-20 2013 MG ed 375mg; r County 08:22: Twenty (20); Healt h 08 PM Take one by Care EDT mouth every Corporat io 12 hours as n needed for pain Take with food. Do not take if you have ulcers or bleeding history Not Taking Not 999 UNK complet Not Taking [place] Home Meds Taking MG ed Home Meds r C ounty Home Health Meds Care Corporatio n No known complet White medications ed [place] [facility] valacyclovi [place]re 999 oral discont Valtrex [place] r 1000 MG x MG inued [facility] Oral Tablet Health [Valtrex] Care Corporatio n Insurance Providers Payer name Policy Policy ID Covered Covered Policy Plan Info rmation type / democrat ID democrat's Burnett Coverage relationship type to burnett AFFINITY [id number] PT [id number] HEALTH PLAN AFFINITY [id number] PT [id number] ESSENTIAL PLAN 1 AFFINITY [id number] PT [id number] ESSENTIAL PLAN 1 AFFINITY [id number] SP [id number] ESSENTIAL PLAN 1 2 AFFINITY [id number] SP [id number] UNK UNK UNK UNK UNK UNK [place] [id number] SP [id number] [place] [id number] SP [id number] AFFINITY [id number] SP [id number] ESSENTIAL PLAN 1 2 AFFINITY [id number] SP [id number] HP Problems, Conditions, and Diagnoses Code Display Name Description Problem Type Effective Data Sour ce(s) Dates Z03.818 Encounter for ENCNTR FOR OBS Diagnosis 01/01/2020 [place] observation for FOR SUSP EXPSR TO 06:00:00 AM [facility] suspected exposure OTH BIOLG AGENTS EDT Care to other RULED OUT Corporation biological agents ruled out Z11.59 Encounter for Z11.59 Diagnosis 12/31/2019 [place] screening for 03:44:00 PM Hospital other viral EDT diseases F17.200 Nicotine F17.200 Diagnosis 12/19/2019 [place] dependence, 03:36:00 PM Hospital unspecified, EDT uncomplicated Z53.21 Procedure and PROC/TRTMT NOT Diagnosis 06/30/2019 [place] treatment not CRD OUT D/T PT LV 01:43:00 PM [facility] carried out due to BEF SEEN BY [facility] patient [facility] on prior to being seen by health care provider R19.7 Diarrhea, DIARRHEA, Diagnosis 06/30/2019 [place] unspecified UNSPECIFIED 01:43:00 PM [facility] EST Care Corporation R11.10 Vomiting, VOMITING, Diagnosis 06/30/2019 [place] unspecified UNSPECIFIED 01:43:00 PM [facility] EST Care Corporation R10.9 Unspecified UNSPECIFIED Diagnosis 06/30/2019 [place] abdominal pain ABDOMINAL PAIN 01:43:00 PM Count y Health EST [facility] Z85.72 Personal history PERSONAL HISTORY Diagnosis 05/17/2019 [facility] 03:10:00 PM [facility] lymphomas LYMPHOMAS EST [facility] R21 Rash and other RASH AND OTHER Diagnosis 05/17/2019 [facility] nonspecific skin NONSPECIFIC SKIN 03:10:[facility]PT[facility] L08.9 Local infection of LOCAL INFECTION Diagnosis 05/17/2019 [facility] the skin and OF THE SKIN AND 03:10:00 PM [facility] subcutaneous SUBCUTANEOUS EST Care tissue, TISSUE, [employer] Corporation unspecified Results ID Date Data Source [id number] 02/24/2020 12:00:00 AM EDT [facility] Name Value Range Interpretation Code Description Data Flavia rce(s) Supporting Document(s ) SARS-CoV-2 [facility] (COVID-19) This lab was ordered by [facility] and reported by [facility]. ID Date Data Source [id number] 02/17/2020 12:00:00 AM EDT [facility] Name Value Range Interpretation Code Description Data Flavia rce(s) Supporting Document(s ) SARS-CoV-2 [facility] (COVID-19) This lab was ordered by [facility] and reported by [facility]. ID Date Data Source [id number] 02/12/2020 12:00:00 AM EDT [facility] Name Value Range Interpretation Code Description Data Flavia rce(s) Supporting Document(s ) SARS-CoV-2 [facility] (COVID-19) This lab was ordered by [facility] and reported by [facility]. ID Date Data Source [id number] 02/03/2020 12:00:00 AM EDT [facility] Name Value Range Interpretation Code Description Data Flavia rce(s) Supporting Document(s ) SARS-CoV-2 [facility] (COVID-19) This lab was ordered by [facility] and reported by [facility]. ID Date Data Source [id number] 01/27/2020 12:00:00 AM EDT [facility] Name Value Range Interpretation Code Description Data Flavia rce(s) Supporting Document(s ) SARS-CoV-2 [facility] (COVID-19) This lab was ordered by [facility] and reported by [facility]. ID Date Data Source [id number] 01/20/2020 12:00:00 AM EDT [facility] Name Value Range Interpretation Code Description Data Flavia rce(s) Supporting Document(s ) SARS-CoV-2 [facility] (COVID-19) This lab was ordered by [facility] and reported by [facility]. ID Date Data Source [id number] 01/13/2020 12:00:00 AM EDT [facility] Name Value Range Interpretation Code Description Data Flavia rce(s) Supporting Document(s ) SARS-CoV-2 [facility] (COVID-19) This lab was ordered by [facility] and reported by [facility]. ID Date Data Source [id number] 01/05/2020 12:00:00 AM EDT [facility] Name Value Range Interpretation Code Description Data Flavia rce(s) Supporting Document(s ) SARS-CoV-2 [facility] (COVID-19) This lab was ordered by [facility] and reported by [facility]. ID Date Data Source [id number] 12/31/2019 03:58:00 PM EDT [facility] Name Value Range Interpretation Code Description Data Flavia rce(s) Supporting Document(s ) COV2 [facility] This lab was ordered by [facility] and reported by [facility]. ID Date Data Source [id number] 12/22/2019 12:00:00 AM EDT [facility] Name Value Range Interpretation Code Description Data Flavia rce(s) Supporting Document(s ) 2019-nCoV [facility] RNA XXX LUIS MIGUEL+probe- Imp This lab was ordered by [facility] and reported by [employer]. ID Date Data Source [id number] 12/19/2019 03:25:00 PM EDT [facility] Name Value Range Interpretation Code Description Data Flaiva rce(s) Supporting Document(s ) COV2 [facility] This lab was ordered by [facility] and reported by [facility] [facility] [place] [place]. ID Date Data Source [id number] 12/11/2019 12:35:00 PM EDT [facility] Name Value Range Interpretation Code Description Data Flavia rce(s) Supporting Document(s ) COV2 [facility] This lab was ordered by [facility] and reported by [facility] [place]. ID Date Data Source [id number] 12/02/2019 12:00:00 AM EDT [facility] Name Value Range Interpretation Code Description Data Flavia rce(s) Supporting Document(s ) COV2 [facility] This lab was ordered by [facility] and reported by [facility] [facility] [place]. ID Date Data Source [id number] 11/27/2019 12:00:00 AM EDT [facility] Name Value Range Interpretation Code Description Data Flavia rce(s) Supporting Document(s ) COV2 [facility] This lab was ordered by [facility] and reported by [employer] [facility] [place]. ID Date Data Source [id number] 11/18/2019 12:00:00 AM EDT [facility] Name Value Range Interpretation Code Description Data Flavia rce(s) Supporting Document(s ) COV2 [facility] This lab was ordered by [facility] and reported by [facility] [facility] [place]. ID Date Data Source [id number] 11/12/2019 09:42:00 AM EDT [facility] Name Value Range Interpretation Code Description Data Flavia rce(s) Supporting Document(s ) COV2 [facility] This lab was ordered by [facility] [employer] [facility] and reported by [facility]. ID Date Data Source [id number] 11/03/2019 02:53:00 PM EDT [facility] Name Value Range Interpretation Code Description Data Flavia rce(s) Supporting Document(s ) COV2 [facility] This lab was ordered by [facility] [employer] [facility] and reported by [employer]. ID Date Data Source [id number] 10/30/2019 12:00:00 AM EDT [facility] Name Value Range Interpretation Code Description Data Flavia rce(s) Supporting Document(s ) 2019-nCoV [facility] RNA XXX LUIS MIGUEL+probe- Imp This lab was ordered by [facility] and reported by [employer] ID Date Data Source [id number] 10/28/2019 04:20:00 PM EDT [facility] Name Value Range Interpretation Code Description Data Flavia rce(s) Supporting Document(s ) SARS-COV-2 [facility] QL LUIS MIGUEL+PROBE This lab was ordered by [facility] and reported by [employer]. ID Date Data Source [id number] 10/24/2019 12:00:00 AM EDT [facility] Name Value Range Interpretation Code Description Data Flavia rce(s) Supporting Document(s ) nCoV [facility] RNA XXX LUIS MIGUEL+probe- Imp This lab was ordered by [facility] and reported by [employer] ID Date Data Source [id number] 10/21/2019 04:13:00 PM EDT [facility] Name Value Range Interpretation Code Description Data Flavia rce(s) Supporting Document(s ) SARS-COV-2 [facility] QL LUIS MIGUEL+PROBE This lab was ordered by [facility] and reported by [employer]. ID Date Data Source [id number] 10/15/2019 01:47:00 PM EDT [facility] Name Value Range Interpretation Code Description Data Flavia rce(s) Supporting Document(s ) SARS-COV-2 [facility] QL LUIS MIGUEL+PROBE This lab was ordered by [facility] and reported by [employer]. Procedure Social History Code Duration Value Status Description Data Source(s ) Smoking 12/19/2019 Smokes tobacco completed Smokes tobacco [place] 04:08:00 PM EDT daily (finding) daily (finding) Hospital Vital Signs ID Date Data Source UNK Name Value Range Interpretation Code Description Data Source(s) Heart rate 93 /min 93 /min [facility] Diastolic blood 84 mm[Hg] 84 mm[Hg] [facility] ins pressure Hospital Systolic blood 125 mm[Hg] 125 mm[facility]Hg[facility] Respiratory rate 19 /min 19 /min [facility] Body temperature 36.58115 36.42732 [facility] Body temperature 37.06598 37.66426 [facility] Body temperature 98.4 [degF] 98.4 [degF] [facility] Body temperature 98.7 [degF] 98.7 [degF] [facility] Body mass index 47.0 kg/m2 47.0 kg/m2 [facility] ins (BMI) [Ratio] Hospital Body weight 305.65 305.65 [lb_av] [facility] ins [lb_av] Hospital
[2020-02-28 10:34] LABS: BASO % 0.4 % (0-2.0); EOS % 1.2 % (0-4.5); HEMATOCRIT 45.1 % (35.4-49); HEMOGLOBIN 15.3 GM/dL (11.7-16.9); LYMPH % 37.1 % (8-40); MCH 30.4 pg (25.7-33.7); MCHC 33.8 g/dl (32.0-35.9); MEAN CELL VOLUME 89.8 fl (80-96); MEAN PLT VOLUME 7.9 fl (7.5-11.1); MONO % 7.1 % (3.8-10.2); NEUT % 54.2 % (42.8-82.8); PLATELET COUNT 268 K/MM3 (134-434); RBC 5.03 M/mm3 (4.00-5.60); RDW 13.6 % (11.9-15.9); WHITE BLOOD COUNT 8.7 K/mm3 (4.0-10.0)
[2020-02-28 10:35] LABS: URINE APPEARANCE CLEAR; URINE BILIRUBIN NEGATIVE (NEGATIVE); URINE COLOR YELLOW; URINE GLUCOSE (UA) NEGATIVE (NEGATIVE); URINE KETONE NEGATIVE (NEGATIVE); URINE LEUK ESTERASE NEGATIVE (NEGATIVE); URINE NITRITE NEGATIVE (NEGATIVE); URINE PROTEIN NEGATIVE (NEGATIVE); URINE UROBILINOGEN 0.2 mg/dL (0.2-1.0)
--- NOTE | 2020-02-28 10:51 | PDOC ---
History of Present Illness - General Chief Complaint: Pain, Acute Stated Complaint: PAIN Time Seen by Provider: 02/28/20 09:57 - History of Present Illness Initial Comments: Mark Carrillo is a 34yo man with a PMH of AML (in remission since 2010) and kidney stones who presents with acute onset of left-sided flank pain since earlier today. He states that the pain started suddenly and is severe; it comes and goes. The pain radiates to the groin but is "mostly" located in the flank. He denies any associated nausea, vomiting, change in bowel habits, testicular pain, penile discharge, fever, hematuria or dysuria though says that he has been trying unsuccessfully to urinate throughout the morning. Past History - Medical History Allergies/Adverse Reactions: Allergies Allergy/AdvReac Type Severity Reaction Status Date / Time acyclovir Allergy Intermediate Hives Verified 02/28/20 10:38 Home Medications: Ambulatory Orders Acetaminophen [Pain Relief] 650 mg PO Q6H PRN #30 tablet.er 02/28/20 Ibuprofen 600 mg PO Q6H PRN #30 tablet 02/28/20 Oxycodone HCl [Roxicodone] 5 mg PO QID PRN #12 tablet MDD 4 02/28/20 Tamsulosin HCl [Flomax] 0.4 mg PO DAILY #30 cap.er.24h 02/28/20 Cancer: Yes (AML (REMISSION 2010)) COPD: No GI Disorders: Yes (renal stones (long time ago)) - Immunization History Immunization Up to Date: Yes - Psycho-Social/Smoking History Smoking Status: Yes Smoking History: Current every day smoker Have you smoked in the past 12 months: Yes Number of Cigarettes Smoked Daily: 7 Cigars Per Day: 0 Information on smoking cessation initiated: No 'Breaking Loose' booklet given: 11/27/17 Review of Systems - Review of Systems Comments:: General: No fevers, no chills, no weight or appetite change, no malaise HEENT: No changes in vision, no changes in hearing, no congestion, no sore throat CV: No chest pain, no palpitations, no LE edema Pulm: No SOB, no cough, no wheezing GI: No nausea or vomiting, no change in bowel habits, no melena : No frequency, no urgency, no dysuria. + Left flank pain, see HPI Musc: No back pain, no joint swelling, no recent injury Skin: No rash, no lesions, no erythema Endo: No excessive thirst, no heat/cold intolerance Heme: No unusual bruising or bleeding, no swollen glands Neuro: No syncope, no numbness/tingling, no focal weakness Vasc: No claudication Psych: No recent change in mood, no SI or HI *Physical Exam - Vital Signs Last Vital Signs Temp Pulse Resp BP Pulse Ox 97 F L 88 18 156/72 99 02/28/20 09:47 02/28/20 09:47 02/28/20 09:47 02/28/20 09:47 02/28/20 09:47 - Physical Exam General: Very uncomfortable but in no acute distress HEENT: Atraumatic, PERRL, EOMI, MMM, voice normal Cards: RRR, no murmur appreciated Pulm: Comfortable on room air, clear to auscultation bilaterally Abd: Soft, nontender, nondistended : Mild left CVA tenderness Ext: Atraumatic. No LE edema. ROM intact. WWP Skin: Normal color, no rashes or lesions Neuro: A&Ox3, CN grossly intact, normal speech, motor/sensory grossly intact and symmetric ED Treatment Course - LABORATORY CBC & Chemistry Diagram: 02/28/20 10:17 02/28/20 10:17 - ADDITIONAL ORDERS Additional order review: Laboratory Results 02/28/20 10:00 Urine Color Yellow Urine Appearance Clear Urine pH 5.0 Ur Specific [place] 1.014 Urine Protein Negative Urine Glucose (UA) Negative Urine Ketones Negative Urine Blood Negative Urine Nitrite Negative Urine Bilirubin Negative Urine Urobilinogen 0.2 Ur Leukocyte Esterase Negative 02/28/20 10:17 RBC 5.03 MCV 89.8 MCHC 33.8 RDW 13.6 MPV 7.9 Neutrophils % 54.2 Lymphocytes % 37.1 D Monocytes % 7.1 Eosinophils % 1.2 D Basophils % 0.4 - Medications Given in the ED: ED Medications Discontinued Medications Generic Name Dose Route Start Last Admin Trade Name Freq PRN Reason Stop Dose Admin Ketorolac Tromethamine 30 mg 02/28/20 09:57 02/28/20 10:22 Toradol Injection - IVPUSH 02/28/20 09:58 30 mg ONCE ONE Administration Medical Decision Making - Medical Decision Making 02/28/20 10:46 Mark Carrillo is a 34yo man with a PMH of AML (in remission since 2010) and kidney stones who presents with acute onset of severe, waxing and waning left- sided flank pain that radiates to the groin since earlier today. He additionally reports associated difficulty urinating. - Appears very uncomfortable, concerning for kidney stone. Less likely other intra-abdominal pathology given lack of other associated symptoms. No diarrhea/constipation suggesting colitis or diverticulitis, no nausea/vomiting suggesting gastritis. No right-sided pain suggesting cholecystitis or appendicitis. - CBC, CMP, UA - Toradol - CT 02/28/20 10:53 - UA negative - Pt reports continued severe pain; 4mg iv morphine ordered - Testicular exam completed by Dr Tello, unremarkable - Will send for CT renal stone 02/28/20 11:02 - Labs without concerning abnormalities 02/28/20 12:02 - CT with 3mm stone at the UVJ - Pt states that his pain is not improved at all. Additional morphine given per Dr Tello. Will reassess, also ordering additional IVF. Pt's states that his pain was also difficult to control with his first kidney stone. 02/28/20 13:16 - Minimal improvement after 2nd dose of morphine - Discussed at length with pt; he would prefer to be discharged home if his pain can be controlled. Agreed to try oxycodone/acetaminophen PO to see if his pain will be controlled at home with oral medication - Will reassess 02/28/20 14:16 - Patient feels significantly improved, requesting to go home - Discussed home pain control, follow up with urology, return precautions at length with the patient and his . Both state understanding and agreement. Discussed with Dr Elisha Amos PGY3 Discharge - Discharge Information Problems reviewed: Yes Clinical Impression/Diagnosis: Kidney stone on left side Condition: Stable Disposition: HOME - Admission No - Additional Discharge Information Prescriptions: Tamsulosin HCl [Flomax] 0.4 mg PO DAILY #30 cap.er.24h Ibuprofen 600 mg PO Q6H PRN #30 tablet PRN Reason: Pain Acetaminophen [Pain Relief] 650 mg PO Q6H PRN #30 tablet.er PRN Reason: Pain Oxycodone HCl [Roxicodone] 5 mg PO QID PRN #12 tablet MDD 4 PRN Reason: Severe Pain - Follow up/Referral Referrals: Jaguar Reina MD [Primary Care Provider] - Sim Roberts MD [Staff Physician] - Negrita Reina MD [Staff Physician] - Jace Bermudez MD [Staff Physician] - Christiano Draper MD [Staff Physician] - Wilver Crowe MD., MD [Staff Physician] - Alonso Purvis MD [Staff Physician] - - Patient Discharge Instructions Patient Printed Discharge Instructions: DI for Kidney Stones Additional Instructions: Discharge Instructions: You were seen in the emergency department for abdominal pain, and you were found to have a kidney stone. You had a CT scan to confirm this, and the stone was found to be 3mm in size and located at the junction of the bladder and ureter. This indicates that the stone will most likely pass on its own. Pain Control: You have been prescribed several medications to help with your pain. 1. Take acetaminophen and ibuprofen every 6-8 hours. You may take these medications together, but try to take them with food to avoid upset stomach 2. You may take oxycodone in between the acetaminophen/ibuprofen if needed for continued pain. - Make sure you are drinking plenty of fluids to help pass the kidney stone - You have been provided a urine strainer. If you are able to catch the kidney stone when you pass it, bring the stone to your follow up urology appointment. Follow Up: - You have been referred to a urologist for follow up, Dr Roberts. You should make an appointment within the next week, especially if your symptoms do not resolve over the next few days. - Seek immediate medical care if you have worsening of your symptoms, you do not pass the stone within 3-4 days, you stop making urine entirely, you have noticeable blood in your urine, you develop fevers to 101F, or you have any medical emergency. - Post Discharge Activity Work/Back to School Note: Back to Work
--- NOTE | 2020-02-28 10:52 | PDOC ---
Documentation entered by Jerod Azul SCRIBE, acting as scribe for Evaristo Tello MD. Evaristo Tello MD: This documentation has been prepared by the scribe, Jerod Azul SCRIBE, under my direction and personally reviewed by me in its entirety. I confirm that the documentation accurately reflects all work, treatment, procedures, and medical decision making performed by me. Attending Attestation - Resident Resident Name: Yoli Amos - ED Attending Attestation I have performed the following: I have examined & evaluated the patient, The case was reviewed & discussed with the resident, I agree w/resident's findings & plan, Exceptions are as noted - HPI HPI: 02/28/20 10:26 The patient is a 34 year old male with a significant past medical history of acute myeloid leukemia (remission 2010) and renal stones who presents to the emergency department for evaluation of sudden onset of left flank that began this morning. The patient reports his pain is waxing and waning, lasting a few seconds at a time and radiates to his right lower quadrant. He notes he has not urinated since this morning. Denies radiation of the pain to the penis. The patient denies chest/back pain, cough, and shortness of breath. Denies fever, chills, nausea, vomiting, and/or any GI symptoms. Denies any other symptoms. Allergies: acyclovir Past surgical history: None reported Social history: Everyday smoker (1/2 ppd tobacco use x 1 year). Denies alcohol use and recreational drugs PCP: Jaguar Reina - Physicial Exam PE: 02/28/20 10:05 GENERAL: The patient is awake, alert, and fully oriented, appears uncomfortable, writihgng around in pain HEAD: Normocephalic, atraumatic. EYES: extraocular movements intact, sclera anicteric, conjunctiva clear. ENT: Normal voice, Moist mucous membranes. NECK: Normal range of motion, supple without lymphadenopathy, JVD, or masses. LUNGS: Breath sounds equal, clear to auscultation bilaterally. No wheezes, no crackles, no rales. HEART: Regular rate and rhythm, normal S1 and S2 without murmur, rub or gallop. ABDOMEN: Soft, nontender, normoactive bowel sounds. No guarding, no rebound. No masses. No cva tenderness : normal testicles, cremesteric reflex intact EXTREMITIES: Normal range of motion, no edema. No clubbing or cyanosis. No cords, erythema, or tenderness. NEUROLOGICAL: No facial asymmetry, Normal speech, normal gait. PSYCH: Normal mood, normal affect. SKIN: Warm, Dry, normal turgor, no rashes or lesions noted. - Medical Decision Making 02/28/20 10:48 ap * L flank pain suspect kidney stones will obtain blood work, ua will reassess will obtain CT to r/o stone stillin pain. will give dose of morphine 02/28/20 13:35 CT cw 3mm uvj stone. pt had received several doses of pain medications. currently feeling better. pain improved anticipate dc with outpatient and urology follow up Discharge - Discharge Information Problems reviewed: Yes Clinical Impression/Diagnosis: Kidney stone on left side Condition: Stable Disposition: HOME - Additional Discharge Information Prescriptions: Tamsulosin HCl [Flomax] 0.4 mg PO DAILY #30 cap.er.24h Ibuprofen 600 mg PO Q6H PRN #30 tablet PRN Reason: Pain Acetaminophen [Pain Relief] 650 mg PO Q6H PRN #30 tablet.er PRN Reason: Pain Oxycodone HCl [Roxicodone] 5 mg PO QID PRN #12 tablet MDD 4 PRN Reason: Severe Pain - Follow up/Referral Referrals: Jace Bermudez MD [Staff Physician] - Christiano Draper MD [Staff Physician] - Sim Roberts MD [Staff Physician] - Wilver Crowe MD., MD [Staff Physician] - Alonso Purvis MD [Staff Physician] - Jaguar Reina MD [Primary Care Provider] - Negrita Reina MD [Staff Physician] - - Patient Discharge Instructions Patient Printed Discharge Instructions: DI for Kidney Stones Additional Instructions: Discharge Instructions: You were seen in the emergency department for abdominal pain, and you were found to have a kidney stone. You had a CT scan to confirm this, and the stone was found to be 3mm in size and located at the junction of the bladder and ureter. This indicates that the stone will most likely pass on its own. Pain Control: You have been prescribed several medications to help with your pain. 1. Take acetaminophen and ibuprofen every 6-8 hours. You may take these medic ations together, but try to take them with food to avoid upset stomach 2. You may take oxycodone in between the acetaminophen/ibuprofen if needed for continued pain. - Make sure you are drinking plenty of fluids to help pass the kidney stone - You have been provided a urine strainer. If you are able to catch the kidney stone when you pass it, bring the stone to your follow up urology appointment. Follow Up: - You have been referred to a urologist for follow up, Dr Roberts. You should make an appointment within the next week, especially if your symptoms do not resolve over the next few days. - Seek immediate medical care if you have worsening of your symptoms, you do not pass the stone within 3-4 days, you stop making urine entirely, you have noticeable blood in your urine, you develop fevers to 101F, or you have any medical emergency. - Post Discharge Activity Work/Back to School Note: Back to Work
[2020-02-28 10:57] LABS: ALBUMIN 3.5 g/dl (3.4-5.0); BILIRUBIN,TOTAL 0.5 mg/dL (0.2-1); BLOOD UREA NITROGEN 9.5 mg/dL (7-18); CALCIUM 8.4 mg/dL (8.5-10.1); CREATININE 0.7 mg/dL (0.55-1.3); POTASSIUM 4.4 mmol/L (3.5-5.1); TOT PROT 7.4 g/dl (6.4-8.2)
[2020-02-28] MEDS ORDERED: morphine CARPU-JECT 4 MG/1 ML DISP.SYRIN IVPUSH ONE ×2 (11:15)
[2020-02-28] MEDS ORDERED: LACTATED RINGERS SOLUTION 1000 ML INFUS.BAG IV ONE (12:51)
[2020-02-28 14:14] VITALS: BP 134/68; PULSE 71; TEMP 98.4
== END 2020-02-28 14:29 | disposition home or self-care (01) ==
LOC: JER 09:43
PROC: 3E033NZ Introduction of Analgesics, Hypnotics, Sedatives into Peripheral Vein, Percutaneous Approach (ICD-10-PCS; principal; 2020-02-28)
PROC: 3E033GC Introduction of Other Therapeutic Substance into Peripheral Vein, Percutaneous Approach (ICD-10-PCS; 2020-02-28)
PROC: 3E0337Z Introduction of Electrolytic and Water Balance Substance into Peripheral Vein, Percutaneous Approach (ICD-10-PCS; 2020-02-28)
DX: N20.0 Calculus of kidney (principal)
CPT/HCPCS: 36415; 74176-TC; 80053; 81003; 85025; 99284-25

== ENCOUNTER 2020-02-29 07:31 | Emergency (ER) | payer OTHER ==
--- OUTSIDE RECORDS SUMMARY | 2020-02-29 07:44 | XMS ---
:1985 Author Organization [facility] Care Team Providers Name Role Phone Augustine Zaidi MD Unavailable Unavailable MADALYN Unavailable Unavailable Keshav Miller Unavailable Unavailable LANOIX, AKASH Unavailable Unavailable EMERGENCY SERVICE, X Unavailable Unavailable AAKASH TORRES Unavailable Unavailable NIRANJAN GARCES Unavailable Unavailable Re-disclosure [...] is protected by Article 27-F of the [facility] Public Health law. If you continue you may haveaccess to information: Regarding HIV / AIDS; Provided by facilities licensed or operated by the [facility] Office of Mental Health; or Provided by the [facility] Office for People With Developmental Disabilities. If such information is present, then the following [facility] mandated warning applies: This information has [...] law may result in a fine or assisted sentence or both. A general authorization for the release of medical or other information is NOT sufficient authorization for further disclosure. Allergies and Adverse Reactions Type Description Substance Reaction Status Data Source(s ) Drug allergy No Known Allergies No Known NO KNOWN Denise Parkinson Allergies ALLERG [facility] Drug allergy No Known Drug No Known Drug [facility] Allergies Allergies [facility] Encounters Encounter Providers Location Date Indications Data Source(s ) Outpatient Attender: MELISSA 01/01/2020 Z03.818 [facility] AAKASH LeoAdmitter: 06:00:00 [facility] AAKASH TORRES [facility] Corporatio n EVeeReferrer: AAKASH TORRES Z03.818 Outpatient Attender: Keshav 12/31/2019 03:30:00 COVID TESTYulisa Miller EDT [facility] COVID TESTING [place] Outpatient Attender: MELISSA 12/29/2019 06:00:00 03.8 [facility] AAKASH LeoAdmitter: AM [facility] AAKASH TORRES [facility] EVeeReferrer: AAKASH TORRES Z03.818 Outpatient Attender: MELISSA 12/22/2019 06:00:00 03.8 [facility] AAKASH LeoAdmitter: AM [facility] AAKASH TORRESatio n EVeeReferrer: AAKASH TORRES Z03.818 Emergency Attender: Augustine 12/19/2019 03:19:[address] [facility] Za[facility] PM EDT - 12/19/2019 Hospi jen 04:13:00 PM EDT COVID TESTING [place] Patient discharged. Outpatient Attender: KARAdmitter: 11/06/2019 01:40:[address] [place] [address] Z03.818 Outpatient Attender: KARAdmitter: 10/30/2019 02:35:00 Z03. 818 [facility] MADALYN PM EDT [facility] Z03.818 Outpatient Attender: MELISSA, 10/24/2019 11:54:00 Z03.818 [facility] AAKASH RoblesVeeAdmitter: AM EDT [facility] AAKASH TORRES Corporatio n E.Referrer: AAKASH TORRES Z03.818 Emergency Attender: EMERGENCY 06/30/2019 ABDOMINAL PAIN, [facility] SERVICE, XAttender: 01:43:00 PM EST [facility] DEZ IVANAdmitter: Cor poration [place] ABDOMINAL PAIN, CHEST JOMAR Emergency Attender: SLADE, 05/17/2019 SORE THROAT [facility] RICHARDAttender: 03:10:00 PM EST FACIAL ABCESS [facility] EMERGENCY SERVICE, Corpor ation XAdmitter: AKASH JUNE SORE THROAT FACIAL ABCESS Medications Medication Brand Start Product Dose Route Administrative Pharmacy [facility] Indications Reaction Description Data Name Date Form [...] [place] 375mg-20 2013 MG ed 375mg; r [facility] 08:22: Twenty (20); Healt h 08 PM [...] n No known complet White medications ed [place] . [facility] valacyclovi Valtre 999 oral discont [facility] MG x MG inued [facility] Oral Tablet Health [Valtrex] Care Corporatio n Insurance Providers Payer name Policy Policy ID Covered Covered Policy Plan Info rmation type / alliance party ID alliance party's Burnett Coverage relationship type to burnett AFFINITY [id number] SP [id number] ESSENTIAL PLAN 1 2 AFFINITY [id number] PT [id number] HEALTH PLAN AFFINITY [id number] PT [id number] ESSENTIAL PLAN 1 AFFINITY [id number] PT [id number] 900 ESSENTIAL PLAN 1 AFFINITY [id number] SP [id number] 900 UNK UNK UNK UNK UNK UNK GEICO [id number] SP [id number] GEICO [id number] SP [id number] AFFINITY [id number] SP [id number] 900 ESSENTIAL PLAN 1 2 AFFINITY [id number] SP [id number] QHP Problems, Conditions, and Diagnoses Code Display Name Description Problem Type Effective Data Sour ce(s) Dates Z03.818 Encounter for ENCNTR FOR OBS Diagnosis 01/01/2020 [facility] observation for FOR SUSP EXPSR TO 06:00:00 AM [facility] suspected exposure OTH BIOLG AGENTS EDT Care to other [employer]ULED OUT Corporation biological agents ruled out Z11.59 Encounter for Z11.59 Diagnosis 12/31/2019 [place] [facility] screening for 03:44:00 PM Hospital other viral EDT diseases F17.200 Nicotine F17.200 Diagnosis 12/19/2019 [place] dependence, 03:36:00 PM Hospital unspecified, EDT uncomplicated Z53.21 Procedure and PROC/TRTMT NOT Diagnosis 06/30/2019 [facility] ster treatment not CRD OUT D/T PT LV 01:43:00 PM [facility] carried out due to BEF SEEN BY [facility] patient leaving CARE [facility] on prior to being seen by health care provider R19.7 Diarrhea, DIARRHEA, Diagnosis 06/30/2019 [place] unspecified UNSPECIFIED 01:43:00 PM [facility] R11.10 Vomiting, VOMITING, Diagnosis 06/30/2019 [place] unspecified UNSPECIFIED 01:43:00 PM [facility] EST Care Corporation R10.9 Unspecified UNSPECIFIED Diagnosis 06/30/2019 [place] abdominal pain ABDOMINAL PAIN 01:43:00 PM [facility] Care [facility] Z85.72 Personal history PERSONAL HISTORY Diagnosis 05/17/2019 [facility] 03:10:00 PM Count [facility] lymphomas LYMPHOMAS [facility] R21 Rash and other RASH AND OTHER Diagnosis 05/17/2019 [facility] nonspecific skin NONSPECIFIC SKIN 03:10:00 [facility] eruption ERUPTION [facility] L08.9 Local infection of LOCAL INFECTION Diagnosis 05/17/2019 [facility] the skin and OF THE SKIN AND 03:10:00 PM [facility] subcutaneous SUBCUTANEOUS EST [facility] tissue, TISSUE, [employer] unspecified Results ID Date Data Source [id number] 02/24/2020 12:00:00 AM EDT [facility] Name Value Range Interpretation Code Description Data Flavia rce(s) Supporting Document(s ) SARS-CoV-2 [facility] (COVID-19) [facility] and reported by [facility]. ID Date Data Source [id number] 02/17/2020 12:00:00 AM EDT [facility] Name Value Range Interpretation Code Description Data Flavia rce(s) Supporting Document(s ) SARS-CoV-2 [facility] (COVID-19) This lab was ordered by [facility] and reported by [facility]. ID Date Data Source [id number] 02/12/2020 12:00:00 AM EDT [facility] Name Value Range Interpretation Code Description Data Flavia rce(s) Supporting Document(s ) SARS-CoV-2 [facility] (COVID-19) [facility] lab [facility] and reported by [facility]. ID Date Data Source [id number] 02/03/2020 12:00:00 AM EDT [facility] Name Value Range Interpretation Code Description Data Flavia rce(s) Supporting Document(s ) SARS-CoV-2 [facility] (COVID-19) This lab was ordered by [facility] and reported by [facility]. ID Date Data Source [id number] 01/27/2020 12:00:00 AM EDT [facility] Name Value Range Interpretation Code Description Data Flavia rce(s) Supporting Document(s ) SARS-CoV-2 [facility] (COVID-19) This lab was ordered by [facility] and [facility] ID Date Data Source [id number] 01/20/2020 12:00:00 AM EDT [facility] Name Value Range Interpretation Code Description Data Flavia rce(s) Supporting Document(s ) SARS-CoV-2 [facility] (COVID-19) This lab was ordered by [facility] and [facility] by [facility]. ID Date Data Source [id number] 01/13/2020 12:00:00 AM EDT [facility] Name Value Range Interpretation Code Description Data Flavia rce(s) Supporting Document(s ) SARS-CoV-2 [facility] (COVID-19) This lab was ordered by [facility] and reported by [facility]. ID Date Data Source [id number] 01/05/2020 12:00:00 AM EDT [facility] Name Value Range Interpretation Code Description Data Flavia rce(s) Supporting Document(s ) SARS-CoV-2 [facility] (COVID-19) This lab was ordered by [facility] and reported by [facility]. ID Date Data Source [id number] 12/31/2019 03:58:00 PM EDT [facility] Name Value Range Interpretation Code Description Data Flavia rce(s) Supporting Document(s ) COV2 [facility] This lab was ordered by [facility] and reported by [facility] [place]. ID Date Data Source [id number] 12/22/2019 12:00:00 AM EDT [facility] Name Value Range Interpretation Code Description Data Flavia rce(s) Supporting Document(s ) 2019-nCoV [facility] RNA XXX LUIS MIGUEL+probe- Imp This lab was ordered by [facility] and reported by [employer]. ID Date Data Source [id number] 12/19/2019 03:25:00 PM EDT [facility] Name Value Range Interpretation Code Description Data Flavia rce(s) Supporting Document(s ) COV2 [facility] This lab was ordered by [facility] and reported by [facility] [place]. ID Date Data Source [id number] 12/11/2019 12:35:00 PM EDT [facility] Name Value Range Interpretation Code Description Data Flavia rce(s) Supporting Document(s ) COV2 [facility] This lab was ordered by [employer] [facility] [employer] and reported by [facility] [place]. ID Date Data Source [id number] 12/02/2019 12:00:00 AM EDT [facility] Name Value Range Interpretation Code Description Data Flavia rce(s) Supporting Document(s ) COV2 [facility] This lab was ordered by [employer] [facility] [employer] and reported by [facility] [place]. ID Date Data Source [id number] 11/27/2019 12:00:00 AM EDT [facility] Name Value Range Interpretation Code Description Data Flavia rce(s) Supporting Document(s ) COV2 [facility] This lab was ordered by [employer] [employer] and reported by [facility] [place]. ID Date Data Source [id number] 11/18/2019 12:00:00 AM EDT [facility] Name Value Range Interpretation Code Description Data Flavia rce(s) Supporting Document(s ) COV2 [facility] This lab was ordered by [employer] and reported by [facility] [place]. ID Date Data Source [id number] 11/12/2019 09:42:00 AM EDT [facility] Name Value Range Interpretation Code Description Data Flavia rce(s) Supporting Document(s ) COV2 [facility] This lab was ordered by [employer] and reported by [facility]. ID Date Data Source [id number] 11/03/2019 02:53:00 PM EDT [facility] Name Value Range Interpretation Code Description Data Flavia rce(s) Supporting Document(s ) COV2 [facility] This lab was ordered by [facility] and reported by [facility] [employer]. ID Date Data Source [id number] 10/30/2019 12:00:00 AM EDT [facility] Name Value Range Interpretation Code Description Data Flavia rce(s) Supporting Document(s ) nCoV [facility] RNA XXX LUIS MIGUEL+probe- Imp This lab was ordered by [facility] and reported by [employer] ID Date Data Source [id number] 10/28/2019 04:20:00 PM EDT [facility] Name Value Range Interpretation Code Description Data Flavia rce(s) Supporting Document(s ) SARS-COV-2 [facility] QL LUIS MIGUEL+PROBE This lab was ordered by [facility] and reported by [employer]. ID Date Data Source [id number] 10/24/2019 12:00:00 AM EDT [facility] Name Value Range Interpretation Code Description Data Flaiva rce(s) Supporting Document(s ) nCoV [facility] RNA XXX LUIS MIGUEL+probe- Imp This lab was ordered by [facility] and reported by [employer] ID Date Data Source [id number] 10/21/2019 04:13:00 PM EDT [facility] Name Value Range Interpretation Code Description Data Flavia rce(s) Supporting Document(s ) SARS-COV-2 [facility] QL LUIS MIGUEL+PROBE This lab was ordered by [facility] and reported by [employer]. ID Date Data Source [id number] 10/15/2019 01:47:00 PM EDT [facility] Name Value Range Interpretation Code Description Data Flavia rce(s) Supporting Document(s ) SARS-COV-2 [facility] QL LUIS MIGUEL+PROBE This lab was ordered by [facility] and reported by [employer]. Procedure Social History Code Duration Value Status Description Data Source(s ) Smoking 12/19/2019 Smokes tobacco completed Smokes tobacco [place] 04:08:00 PM EDT daily (finding) daily (finding) Hospital Vital Signs ID Date Data Source UNK Name Value Range Interpretation Code Description Data Source(s) Heart rate 93 /min 93 /min Health System Diastolic blood 84 mm[Hg] 84 mm[Hg] [facility] pressure Hospital Systolic blood 125 mm[Hg] 125 mm[Hg] [facility] pressure Hospital Respiratory rate 19 /min 19 /min [facility] Body temperature 36.97763 36.64076 [facility] Body temperature 37.26750 37.18803 [facility] Body temperature 98.4 [degF] 98.4 [degF] Health System Body temperature 98.7 [degF] 98.7 [degF] Health System Body mass index 47.0 kg/m2 47.0 kg/m2 [facility] ins (BMI) [Ratio] Hospital Body weight 305.65 305.65 [lb_av] [facility] ins [lb_av] [facility]
[2020-02-29 07:46] VITALS: TEMP 98.6; BMI 50.1
--- NOTE | 2020-02-29 07:56 | PDOC ---
Attending Attestation - Resident Resident Name: Yoli Amos - ED Attending Attestation I have performed the following: I have examined & evaluated the patient, The case was reviewed & discussed with the resident, I agree w/resident's findings & plan, Exceptions are as noted - HPI HPI: 02/29/20 09:20 34 years old past medical history significant for AML in remission diagnosed yesterday with 3 mm left UVJ stone took some pain medication went to sleep woke up this morning with moderate to severe pain 8 or 9 out of 10 denies fever chills nausea vomiting pain is sharp stabbing left flank radiating to the groin waxing and waning - Physicial Exam PE: 02/29/20 09:20 Vitals: Triage Vital signs reviewed General Appearance: No acute distress, well nourished well developed, Cardiac: Regular rate and rhythym, no murmurs, no rubs, no gallops, Lungs: Clear to auscultation bilateral, good air movement bilaterally, Abdomen: Soft, non distended, normal bowel sounds, non tender to palpation, left flank tenderness palpation Extremities: Full range of motion to all extremities, no cyanosis, clubbing, or edema Psych: Normal mood, normal affect - Medical Decision Making 02/29/20 11:28 34 years old known kidney stone presents with pain upon waking up. Did not take any pain medication since last night Urine clean no fever patient feels better after Tylenol Toradol Discussed staying for stent placement versus returning home patient would prefer to return home at this time. Patient instructed to return to the ED for any severe worsening symptoms fever vomiting or for any concerns otherwise he will call urology today for follow-up. Discharge - Discharge Information Problems reviewed: Yes Clinical Impression/Diagnosis: Kidney stone on left side Condition: Stable Disposition: HOME - Follow up/Referral Referrals: Jaguar Reina MD [Primary Care Provider] - - Patient Discharge Instructions Additional Instructions: Discharge Instructions: You were seen in the emergency department for abdominal pain from your kidney stone. Your pain improved with medication. Take your prescribed pain medications as directed at home. - Take both your ibuprofen and acetaminophen when you wake up at 6am, at noon, at 6pm, and at midnight. Do not wait for severe pain before you take your medications. - You may take oxycodone if you have continued pain one hour after taking the other medication - Drink plenty of fluids. Follow Up: - You have been referred to a urologist for follow up, Dr Roberts. Call today to schedule an appointment within the next week. - Seek immediate medical care if you have worsening of your symptoms, your pain is not controlled with your home pain medications, you do not pass the stone within 3-4 days, you stop making urine entirely, you have noticeable blood in your urine, you develop fevers to 101F, or you have any medical emergency. - Post Discharge Activity
--- NOTE | 2020-02-29 07:58 | PDOC ---
History of Present Illness - General Chief Complaint: Back Pain Stated Complaint: BACK PAIN Time Seen by Provider: 02/29/20 07:55 - History of Present Illness Initial Comments: Mark Carrillo is a 34yo man with a PMH of AML (in remission since 2010) and prior kidney stones who returns to the ED today after being diagnosed with a 3mm left UVJ renal stone yesterday. He states that he took the prescribed pain medication (acetaminophen, ibuprofen, oxyodone) last night but has severe pain today. He did not take any pain medication at home this morning. He denies any new hematuria, difficulty urinating today, abdominal pain, fever, or other new symtpoms. His pain is the same location, quality, and severity as yesterday: it is currently in the left flank with radiation to the groin, waxing and waning, and 03/05. Past History - Medical History Allergies/Adverse Reactions: Allergies Allergy/AdvReac Type Severity Reaction Status Date / Time acyclovir Allergy Intermediate Hives Verified 03/01/20 18:44 Home Medications: Ambulatory Orders Acetaminophen [Pain Relief] 650 mg PO Q6H PRN #30 tablet.er 02/28/20 Ibuprofen 600 mg PO Q6H PRN #30 tablet 02/28/20 Oxycodone HCl [Roxicodone] 5 mg PO QID PRN #12 tablet MDD 4 02/28/20 Tamsulosin HCl [Flomax] 0.4 mg PO DAILY #30 cap.er.24h 02/28/20 Cancer: Yes (AML (REMISSION 2010)) COPD: No GI Disorders: Yes (renal stones (long time ago)) - Immunization History Immunization Up to Date: Yes - Psycho-Social/Smoking History Smoking Status: Yes Smoking History: Never smoked Have you smoked in the past 12 months: No Number of Cigarettes Smoked Daily: 7 Cigars Per Day: 0 'Breaking Loose' booklet given: 11/27/17 - Substance Abuse Hx (Audit-C & DAST Scrn) How often the patient has a drink containing alcohol: Never Score: In Men: 4 or > Positive; In Women: 3 or > Positive: 0 Screen Result (Pos requires Nsg. Audit-10AR): Negative In the last yr the pt used illegal drug/Rx for NonMed reason: No Score: Yes response is considered Positive: 0 Screen Result (Positive result requires Nsg. DAST-10): Negative Review of Systems - Review of Systems Comments:: General: No fevers, no chills, no weight or appetite change, no malaise HEENT: No changes in vision, no changes in hearing, no congestion, no sore throat CV: No chest pain, no palpitations, no LE edema Pulm: No SOB, no cough, no wheezing GI: No nausea or vomiting, no change in bowel habits, no melena : See HPI Musc: No back pain, no joint swelling, no recent injury Skin: No rash, no lesions, no erythema Endo: No excessive thirst, no heat/cold intolerance Heme: No unusual bruising or bleeding, no swollen glands Neuro: No syncope, no numbness/tingling, no focal weakness Vasc: No claudication Psych: No recent change in mood, no SI or HI *Physical Exam - Vital Signs Last Vital Signs Temp Pulse Resp BP Pulse Ox 98.6 F 108 H 18 139/88 98 02/29/20 07:33 02/29/20 07:33 02/29/20 07:33 02/29/20 07:33 02/29/20 07:33 - Physical Exam General: Uncomfortable, in no acute distress HEENT: Atraumatic, PERRL, EOMI, MMM, voice normal, normal neck ROM Cards: RRR, no murmur appreciated Pulm: Comfortable on room air, clear to auscultation bilaterally Abd: Soft, mild LLQ tenderness, nondistended : Mild left CVA TTP Ext: Atraumatic. No LE edema. ROM intact. WWP Neuro: A&Ox3, CN grossly intact, normal speech, motor/sensory grossly intact and symmetric ED Treatment Course - LABORATORY CBC & Chemistry Diagram: 02/29/20 08:27 02/29/20 08:27 Medical Decision Making - Medical Decision Making 02/29/20 07:57 Mark Carrillo is a 34yo man with a PMH of AML (in remission since 2010), kidney stone with known 3mm left UVJ stone diagnosed in the ED yesterday who returns with uncontrolled pain with PO medications at home. - Known kidney stone, no new or concerning symptoms including fever, hematuria, or change in location or quality of pain - CBC, CMP, UA, UCx to reassess for kidney injury, infection - IV acetaminophen, toradol, IVF - Discussed possible admission for pain control and urology evaluation 02/29/20 09:16 - Labs reviewed, no concerning abnormalities. Slight leukocytosis likely reactive, no other s/s of infection - Pt states he is feeling markedly improved, would like to be discharged home - Discussed taking acetaminophen/iburpofen scheduled every 6 hours for baseline pain control until stone passes. Additionally advised to take meds with food, drink plenty of fluids. May take oxy for breakthrough pain. Pt states understanding of this plan. Will call urology today to schedule follow up - Need urine sample and will then d/c home 02/29/20 10:58 - UA sent at 09:30 but results still not available - Pt sleeping comfortably 02/29/20 11:59 - UA negative for infection - Will d/c home. Discussed home care at length with patient again, and he agrees to this plan Discussed with Dr Joan Amos PGY3 Discharge - Discharge Information Problems reviewed: Yes Clinical Impression/Diagnosis: Kidney stone on left side Condition: Stable Disposition: HOME - Admission No - Follow up/Referral Referrals: Jaguar Reina MD [Primary Care Provider] - - Patient Discharge Instructions Additional Instructions: Discharge Instructions: You were seen in the emergency department for abdominal pain from your kidney stone. Your pain improved with medication. Take your prescribed pain medications as directed at home. - Take both your ibuprofen and acetaminophen when you wake up at 6am, at noon, at 6pm, and at midnight. Do not wait for severe pain before you take your medications. - You may take oxycodone if you have continued pain one hour after taking the other medication - Drink plenty of fluids. Follow Up: - You have been referred to a urologist for follow up, Dr Roberts. Call today to schedule an appointment within the next week. - Seek immediate medical care if you have worsening of your symptoms, your pain is not controlled with your home pain medications, you do not pass the stone within 3-4 days, you stop making urine entirely, you have noticeable blood in your urine, you develop fevers to 101F, or you have any medical emergency. - Post Discharge Activity
[2020-02-29] MEDS ORDERED: KETOROLAC TROMETHAMINE 30 MG/1 ML VIAL IVPUSH ONE (07:59)
[2020-02-29] MEDS ORDERED: ACETAMINOPHEN 1000 MG/100 ML VIAL (NON FORMULARY) IVPB ONE (07:59)
[2020-02-29] MEDS ORDERED: LACTATED RINGERS SOLUTION 1,000 ML/1,000 ML INFUS.BAG IV SCH (08:00)
[2020-02-29] MEDS ORDERED: KETOROLAC TROMETHAMINE 30 MG/1 ML VIAL ONE (08:10)
[2020-02-29] MEDS ORDERED: ACETAMINOPHEN INJECTION 100 ML IVPB ONE (08:10)
[2020-02-29 08:44] LABS: BASO % 0.1 % (0-2.0); EOS % 0.4 % (0-4.5); HEMATOCRIT 41.2 % (35.4-49); HEMOGLOBIN 14.1 GM/dL (11.7-16.9); LYMPH % 13.2 % (8-40); MCH 30.9 pg (25.7-33.7); MCHC 34.2 g/dl (32.0-35.9); MEAN CELL VOLUME 90.3 fl (80-96); MONO % 7.8 % (3.8-10.2); NEUT % 78.5 % (42.8-82.8); PLATELET COUNT 230 K/MM3 (134-434); RBC 4.56 M/mm3 (4.00-5.60); RDW 13.7 % (11.9-15.9); WHITE BLOOD COUNT 11.2 K/mm3 (4.0-10.0)
[2020-02-29 09:11] LABS: ALBUMIN 3.1 g/dl (3.4-5.0); BILIRUBIN,TOTAL 0.5 mg/dL (0.2-1); BLOOD UREA NITROGEN 12.1 mg/dL (7-18); CALCIUM 8.2 mg/dL (8.5-10.1); CREATININE 0.9 mg/dL (0.55-1.3); POTASSIUM 4.2 mmol/L (3.5-5.1); TOT PROT 6.4 g/dl (6.4-8.2)
[2020-02-29 11:07] LABS: PH,URINE 5.5 (5.0-8.0); URINE APPEARANCE CLEAR; URINE BILIRUBIN NEGATIVE (NEGATIVE); URINE GLUCOSE (UA) NEGATIVE (NEGATIVE); URINE KETONE NEGATIVE (NEGATIVE); URINE LEUK ESTERASE NEGATIVE (NEGATIVE); URINE NITRITE NEGATIVE (NEGATIVE); URINE PROTEIN NEGATIVE (NEGATIVE); URINE UROBILINOGEN 0.2 mg/dL (0.2-1.0)
[2020-02-29 11:13] LABS: URINE COLOR YELLOW
[2020-02-29 11:29] VITALS: BP 118/53; PULSE 85
--- NOTE | 2020-02-29 17:00 | EKG ---
Test Reason : Blood Pressure : / mmHG Vent. Rate : 082 BPM Atrial Rate : 082 BPM P-R Int : 152 ms QRS Dur : 112 ms QT Int : 372 ms P-R-T Axes : 042 013 016 degrees QTc Int : 434 ms NORMAL SINUS RHYTHM NORMAL ECG WHEN COMPARED WITH ECG OF 02-NOV-2010 18:02, NO SIGNIFICANT CHANGE WAS FOUND Confirmed by RONNELL LAWRENCE MD ([id number]) on 02/29/2020 5:00:05 PM Referred By: Confirmed By:RONNELL LAWRENCE MD
== END 2020-02-29 11:29 | disposition home or self-care (01) ==
LOC: JER 07:31
PROC: 3E0333Z Introduction of Anti-inflammatory into Peripheral Vein, Percutaneous Approach (ICD-10-PCS; principal; 2020-02-29)
PROC: 3E033GC Introduction of Other Therapeutic Substance into Peripheral Vein, Percutaneous Approach (ICD-10-PCS; 2020-02-29)
DX: N20.0 Calculus of kidney (principal)
CPT/HCPCS: 36415; 71045-TC-FY; 80053; 81003; 85025; 87086; 93005; 93010; 99285-25; J0131

== ENCOUNTER 2020-03-01 18:43 | Emergency (ER) | payer OTHER ==
[2020-03-01 18:47] VITALS: TEMP 98.1; BMI 50.1
--- NOTE | 2020-03-01 18:49 | PDOC ---
Rapid Medical Evaluation Time Seen by Provider: 03/01/20 18:45 Medical Evaluation: Allergies Allergy/AdvReac Type Severity Reaction Status Date / Time acyclovir Allergy Intermediate Hives Verified 03/01/20 18:44 03/01/20 18:45 Pt presents to the ER today with increasing pain from kidney stone on the L side. Has been here multiple times this week with the same pain. Exam: appears uncomfortable. L CVAT Orders: labs, IV, fluids Pt to proceed to the ER for further evaluation
--- OUTSIDE RECORDS SUMMARY | 2020-03-01 19:05 | XMS ---
:1985 [facility] Care Team Providers Name Role Phone Augustine Zaidi MD Unavailable Unavailable Keshav Miller Unavailable Unavailable LANLEANDROXAKASH Unavailable Unavailable EMERGENCY SERVICE, X Unavailable Unavailable MARCY BERGMAN Unavailable Unavailable AAKASH TORRES Unavailable Unavailable NIRANJAN [...] is protected by Article 27-F of the [facility] Public Health law. If you continue you may haveaccess to information: Regarding HIV / AIDS; Provided by facilities licensed or operated by the [facility] Office of Mental Health; or Provided by the [facility] Office for People With Developmental Disabilities. If such information is present, then the following [facility] mandated warning applies: This information has [...] law may result in a fine or nursing home sentence or both. A general authorization for the release of medical or other information is NOT sufficient authorization for further disclosure. Allergies and Adverse Reactions Type Description Substance Reaction Status Data Source(s ) Drug allergy No Known Allergies No Known NO KNOWN [facility] c[facility] Allergies ALLERG [facility] Drug allergy No Known Drug No Known Drug [facility] Allergies [facility] on Encounters Encounter Providers Location Date Indications Data Source(s ) Outpatient Attender: MELISSA 01/01/2020 03.818 [facility] César.Admitter: 06:00:00 AM [facility] Care AAKASH TORRES [facility] Corporatio n EVeeReferrer: AAKASH TORRES Z03.818 Outpatient Attender: Keshav 12/31/2019 03:30:00 COVID TESTI ROSA ELENA Jonestero PM EDT [facility] COVID TESTING [place] Outpatient Attender: MELISSA 12/29/2019 06:00:00 03.8 [facility] AAKASH LeoAdmitter: AM EDT [facility] AAKASH TORRESatio n E.Referrer: AAKASH TORRES Z03.818 Outpatient Attender: MELISSA 12/22/2019 06:00:00 03.818 [facility] UPMCCHRIS Robles.Admitter: AM EDT [facility] Care AAKASH TORRES Corporatio n E.Referrer: AAKASH TORRES Z03.818 Emergency Attender: Augustine 12/19/2019 03:19:[facility] - 12/19/2019 Hospi jen 04:13:00 PM EDT COVID TESTING [place] Patient discharged. Outpatient Attender: MADALYN 11/06/2019 01:40:[address] [place] [address] ELVERdmitter: MADALYN, AM EDT [facility] Z03.818 Outpatient Attender: MADALYN, 10/30/2019 02:35:00 Z03.818 [facility] ELVERdmitter: MADALYN, PM EDT [facility] Z03.818 Outpatient Attender: MELISSA, 10/24/2019 11:54:00 Z03.818 [facility] AAKASH LeoAdmitter: AM EDT [facility] Care AAKASH TORRESatio n E.Referrer: AAKASH TORRES Z03.818 Emergency Attender: EMERGENCY 06/30/2019 ABDOMINAL PAIN, [facility] SERVICE, XAttender: 01:43:00 PM EST CHEST JOMAR [facility] BRIDGET GARCESdmitter: NIRANJAN Hernadez ABDOMINAL PAIN, CHEST [facility] Emergency Attender: SLADE, 05/17/2019 SORE THROAT [facility] RICHARDAttender: 03:10:00 PM EST FACIAL ABCESS [facility] EMERGENCY SERVICE, Corpor ation XAdmitter: AKASH JUNE SORE THROAT FACIAL ABCESS Medications Medication Brand Start Product Dose Route Administrative Pharmacy [facility] Indications Reaction Description Data Name Date Form [...] Naprosyn Westcheste 375mg-20 2013 MG ed 375mg; [facility] 08:22: Twenty (20); Healt h 08 PM [...] Corporatio n No known complet White medications [facility] valacyclovi Valtre 999 oral discont Valtrex Westcheste r 1000 MG x MG inued [facility] Oral Tablet Health [Valtrex] Care Corporatio n Insurance Providers Payer name Policy Policy ID Covered Covered Policy Plan Info rmation type / republican ID republican's Burnett Coverage relationship type to burnett AFFINITY [id number] SP [id number] ESSENTIAL PLAN 1 2 AFFINITY [id number] PT [id number] HEALTH PLAN AFFINITY [id number] PT [id number] ESSENTIAL PLAN 1 AFFINITY [id number] PT [id number] 900 ESSENTIAL PLAN 1 AFFINITY [id number] SP [id number] 900 UNK UNK UNK UNK UNK UNK GEICO [id number] SP [id number] GEICO [id number] SP [id number] AFFINITY [id number] SP [id number] 900 ESSENTIAL PLAN 1 2 AFFINITY [id number] SP [id number] QHP Problems, Conditions, and Diagnoses Code Display Name Description Problem Type Effective Data Sour ce(s) Dates Z03.818 Encounter for ENCNTR FOR OBS Diagnosis 01/01/2020 [facility] ster observation for FOR SUSP EXPSR TO 06:00:00 AM [facility] suspected exposure OTH BIOLG AGENTS EDT Care to other [employer] biological agents ruled out Z11.59 Encounter for Z11.59 Diagnosis 12/31/2019 [facility] screening for 03:44:00 PM Hospital other viral EDT diseases F17.200 Nicotine F17.200 Diagnosis 12/19/2019 [place] dependence, 03:36:00 PM Hospital unspecified, EDT uncomplicated Z53.21 Procedure and PROC/TRTMT NOT Diagnosis 06/30/2019 [facility] ster treatment not CRD OUT D/T PT LV 01:43:00 PM [facility] carried out due to BEF SEEN BY [facility] patient leaving CARE [facility] on prior to being seen by health care provider R19.7 Diarrhea, DIARRHEA, Diagnosis 06/30/2019 [place] unspecified UNSPECIFIED 01:43:00 PM Count includes the [facility] EST Care [facility] R11.10 Vomiting, VOMITING, Diagnosis 06/30/2019 [place] unspecified UNSPECIFIED 01:43:00 PM Count includes the [facility] R10.9 Unspecified UNSPECIFIED Diagnosis 06/30/2019 [place] abdominal pain ABDOMINAL PAIN 01:43:00 PM [facility] Z85.72 Personal history PERSONAL HISTORY Diagnosis 05/17/2019 [place] of non-Hodgkin OF NON-HODGKIN 03:10:00 PM [facility] lymphomas LYMPHOMAS [facility] R21 Rash and other RASH AND OTHER Diagnosis 05/17/2019 [facility] nonspecific skin NONSPECIFIC SKIN 03:10:00 PM [facility] [employer] eruption ERUPTION [facility] L08.9 Local infection of LOCAL INFECTION Diagnosis 05/17/2019 [facility] and OF THE SKIN AND 03:10:00 PM [facility] subcutaneous SUBCUTANEOUS EST Care tissue, TISSUE, [employer] unspecified Results ID Date Data Source [id number] 02/24/2020 12:00:00 AM EDT [facility] Name Value Range Interpretation Code Description Data Flavia rce(s) Supporting Document(s ) SARS-CoV-2 [facility] (COVID-19) This lab was ordered by [facility] and reported by [facility]. ID Date Data Source [id number] 02/17/2020 12:00:00 AM EDT [facility] Name Value Range Interpretation Code Description Data Flavia rce(s) Supporting Document(s ) SARS-CoV-2 [facility] (COVID-19) This lab was ordered by [facility] and reported by [facility]. ID Date Data Source [id number] 02/12/2020 12:00:00 AM EDT [facility] Name Value Range Interpretation Code Description Data Flavia rce(s) Supporting Document(s ) SARS-CoV-2 [facility] (COVID-19) This lab was ordered by [facility] and reported by [facility]. ID Date Data Source [id number] 02/03/2020 12:00:00 AM EDT [facility] Name Value Range Interpretation Code Description Data Flavia rce(s) Supporting Document(s ) SARS-CoV-2 [facility] (COVID-19) This lab was ordered by [facility] and reported by [facility]. ID Date Data Source [id number] 01/27/2020 12:00:00 AM EDT [facility] Name Value Range Interpretation Code Description Data Flavia rce(s) Supporting Document(s ) SARS-CoV-2 [facility] (COVID-19) This lab was ordered by [facility] and reported by [facility]. ID Date Data Source [id number] 01/20/2020 12:00:00 AM EDT [facility] Name Value Range Interpretation Code Description Data Flavia rce(s) Supporting Document(s ) SARS-CoV-2 [facility] (COVID-19) This lab was [facility] and reported by [facility]. ID Date Data Source [id number] 01/13/2020 12:00:00 AM EDT [facility] Name Value Range Interpretation Code Description Data Flavia rce(s) Supporting Document(s ) SARS-CoV-2 [facility] (COVID-19) [facility] and reported by [facility]. ID Date Data Source [id number] 01/05/2020 12:00:00 AM EDT [facility] Name Value Range Interpretation Code Description Data Flavia rce(s) Supporting Document(s ) SARS-CoV-2 [facility] (COVID-19) This lab was [facility] by [facility] and reported by [facility]. ID Date Data Source [id number] 12/31/2019 03:58:00 PM EDT [facility] Name Value Range Interpretation Code Description Data Flavia rce(s) Supporting Document(s ) COV2 [facility] This lab was ordered by [facility] and reported by [facility] [place]. ID Date Data Source [id number] 12/22/2019 12:00:00 AM EDT [facility] Name Value Range Interpretation Code Description Data Flavia rce(s) Supporting Document(s ) 2019-nCoV [facility] RNA XXX LUIS MIGUEL+probe- Imp This lab was ordered by [facility] and reported by [employer] ID Date Data Source [id number] 12/19/2019 03:25:00 PM EDT [facility] Name Value Range Interpretation Code Description Data Flavia rce(s) Supporting Document(s ) COV2 [facility] This lab was ordered by [facility] and reported by [employer] [place]. ID Date Data Source [id number] 12/11/2019 12:35:00 PM EDT [facility] Name Value Range Interpretation Code Description Data Flavia rce(s) Supporting Document(s ) COV2 [facility] This lab was ordered by [employer] [facility] and reported by [facility] [place]. ID Date Data Source [id number] 12/02/2019 12:00:00 AM EDT [facility] Name Value Range Interpretation Code Description Data Flavia rce(s) Supporting Document(s ) COV2 [facility] This lab was ordered by [employer] [facility] [employer] and reported by [employer] [place]. ID Date Data Source [id number] 11/27/2019 12:00:00 AM EDT [facility] Name Value Range Interpretation Code Description Data Flavia rce(s) Supporting Document(s ) COV2 [facility] and reported by [employer] [place]. ID Date Data Source [id number] 11/18/2019 12:00:00 AM EDT [facility] Name Value Range Interpretation Code Description Data Flavia rce(s) Supporting Document(s ) COV2 [facility] This lab was ordered by [employer] and reported by [employer] [place]. ID Date Data Source [id number] 11/12/2019 09:42:00 AM EDT [facility] Name Value Range Interpretation Code Description Data Flavia rce(s) Supporting Document(s ) COV2 [facility] This lab [facility] and reported by [employer] [place]. ID Date Data Source [id number] 11/03/2019 02:53:00 PM EDT [facility] Name Value Range Interpretation Code Description Data Flavia rce(s) Supporting Document(s ) COV2 [facility] This lab was ordered by [facility] and reported by [employer]. ID Date Data Source [id number] 10/30/2019 12:00:00 AM EDT [facility] Name Value Range Interpretation Code Description Data Flavia rce(s) Supporting Document(s ) nCoV [facility] RNA XXX LUIS MIGUEL+probe- Imp This lab was ordered by [facility] and reported by [employer] ID Date Data Source [id number] 10/28/2019 04:20:00 PM EDT [facility] Name Value Range Interpretation Code Description Data Flavia rce(s) Supporting Document(s ) SARS-COV-2 [facility] QL LUIS MIGUEL+PROBE This lab was ordered by [facility] and reported by [employer]. ID Date Data Source [id number] 10/24/2019 12:00:00 AM EDT [facility] Name Value Range Interpretation Code Description Data Flavia rce(s) Supporting Document(s ) nCoV [facility] RNA XXX LUIS MIGUEL+probe- Imp This lab was ordered by [facility] and reported by [employer] ID Date Data Source [id number] 10/21/2019 04:13:00 PM EDT [facility] Name Value Range Interpretation Code Description Data Flavia rce(s) Supporting Document(s ) SARS-COV-2 [facility] QL LUIS MIGUEL+PROBE This lab was ordered by [facility] and reported by [employer]. ID Date Data Source [id number] 10/15/2019 01:47:00 PM EDT [facility] Name Value Range Interpretation Code Description Data Flavia rce(s) Supporting Document(s ) SARS-COV-2 [facility] QL LUIS MIGUEL+PROBE This lab was ordered by [facility] and reported by [employer]. Procedure Social History Code Duration Value Status Description Data Source(s ) Smoking 12/19/2019 Smokes tobacco completed Smokes tobacco [place] 04:08:00 PM EDT daily (finding) daily (finding) Hospital Vital Signs ID Date Data Source UNK Name Value Range Interpretation Code Description Data Source(s) Heart rate 93 /min 93 /min [facility] Diastolic blood 84 mm[Hg] 84 mm[Hg] [facility] pressure Hospital Systolic blood 125 mm[Hg] 125 mm[Hg] [facility] ns pressure Hospital Respiratory rate 19 /min 19 /min [facility] Body temperature 36.20541 36.39355 [facility] Body temperature 37.74428 37.72288 [facility] Body temperature 98.4 [degF] 98.4 [degF] [facility] Body temperature 98.7 [degF] 98.7 [degF] [facility] Body mass index 47.0 kg/m2 47.0 kg/m2 [facility] ins (BMI) [Ratio] Hospital Body weight 305.65 305.65 [lb_av] [facility] [lb_av] [facility]
--- NOTE | 2020-03-01 19:25 | PDOC ---
History of Present Illness - General Chief Complaint: Pain Stated Complaint: KIDNEY STONES Time Seen by Provider: 03/01/20 18:45 Past History - Medical History Allergies/Adverse Reactions: Allergies Allergy/AdvReac Type Severity Reaction Status Date / Time acyclovir Allergy Intermediate Hives Verified 03/01/20 18:44 Home Medications: Ambulatory Orders Acetaminophen [Pain Relief] 650 mg PO Q6H PRN #30 tablet.er 02/28/20 Ibuprofen 600 mg PO Q6H PRN #30 tablet 02/28/20 Oxycodone HCl [Roxicodone] 5 mg PO QID PRN #12 tablet MDD 4 02/28/20 Tamsulosin HCl [Flomax] 0.4 mg PO DAILY #30 cap.er.24h 02/28/20 Cancer: Yes (AML (REMISSION 2010)) COPD: No GI Disorders: Yes (renal stones (long time ago)) - Immunization History Immunization Up to Date: Yes - Psycho-Social/Smoking History Smoking Status: Yes Smoking History: Never smoked Have you smoked in the past 12 months: Yes Number of Cigarettes Smoked Daily: 7 Cigars Per Day: 0 'Breaking Loose' booklet given: 11/27/17 - Substance Abuse Hx (Audit-C & DAST Scrn) How often the patient has a drink containing alcohol: Never Score: In Men: 4 or > Positive; In Women: 3 or > Positive: 0 Screen Result (Pos requires Nsg. Audit-10AR): Negative In the last yr the pt used illegal drug/Rx for NonMed reason: No Score: Yes response is considered Positive: 0 Screen Result (Positive result requires Nsg. DAST-10): Negative *Physical Exam - Vital Signs Last Vital Signs Temp Pulse Resp BP Pulse Ox 98.1 F 93 H 18 137/79 100 03/01/20 18:45 03/01/20 18:45 03/01/20 18:45 03/01/20 18:45 03/01/20 18:45 ED Treatment Course - LABORATORY CBC & Chemistry Diagram: 03/01/20 19:28 03/01/20 19:28 Medical Decision Making - Medical Decision Making 03/01/20 19:24 HPI: 34yo M hx obesity, AML (in remission since 2010), and prior kidney stones (last 5yrs ago) who returns to the ED today after being diagnosed with a 3mm left UVJ renal stone 2 days ago, returned to ED yesterday for continued unchanged pain which resolved with medications, returning today for continued unchanged L flank intermittent stabbing pain shooting down to groin. Pt felt fine all day yesterday taking prescribed meds: acetaminophen, ibuprofen, and oxycodone. This AM pt took only ibuprofen and acetaminophen at 0600 and at 1400 and has had worsening pain since this AM. Pt did not take oxycodone today because it makes him feel lightheaded. Pt states that for past 2 days, urination has been start/stop when he's urinating but it is not changed or worse today. Pt denies hematuria, dysuria, abdominal pain, fever, chills, nausea, vomiting, or any other new sx. His pain is the same location, quality, and severity as yesterday. Pt does not have a urologist and has not scheduled f/u. PCP - Jaguar Reina ROS: Constitutional: Negative for chills, fever, fatigue, diaphoresis. HENT: Negative for sore throat, rhinorrhea, congestion. Eyes: Negative for visual disturbance. Respiratory: Negative for shortness of breath, cough, and wheezing. Cardiovascular: Negative for chest pain, palpitations, and leg swelling. Gastrointestinal: Negative for abdominal pain, blood in stool, constipation, diarrhea, nausea, and vomiting. Genitourinary: Positive for flank pain. Negative for dysuria, and hematuria. Musculoskeletal: Negative for myalgias, back pain, and neck pain. Skin: Negative for rash. Neurological: Negative for light-headedness, dizziness, vertigo, syncope, weakness, numbness and headaches. Psychiatric/Behavioral: Negative for behavioral problems and confusion. PE: Gen: Alert, NAD, uncomfortable-appearing, obese HEENT: PERRL, EOMI, MMM, NCAT. No conjunctival pallor. Sclera are non-icteric. CV: Regular rate and rhythm. No murmurs, rubs, or gallops. PULM: No resp distress. CTAB, no wheezes, rales, or rhonchi. ABD: soft, NT/ND, no rebound tenderness or guarding, + L CVA tenderness. BACK: No TTP of c/t/l-spine. No step-offs or deformities. MSK: No bony deformities. 2+ pulses in all extremities. NEURO: AAOx3. PERRL. No gross CN deficits. Strength and sensation grossly intact throughout. EXTREMITIES: No cyanosis. No clubbing. No edema. PSYCH: Normal mood and thought pattern. SKIN: Warm and dry. Normal capillary refill. No rashes. No jaundice. MDM: 34yo M hx obesity, AML (in remission since 2010), and prior kidney stones (last 5yrs ago) who returns to the ED today after being diagnosed with a 3mm left UVJ renal stone 2 days ago, returned to ED yesterday for continued unchanged pain which resolved with medications, returning today for continued unchanged L flank intermittent stabbing pain shooting down to groin. Hemodynamically stable, afebrile, benign abdomen, L CVA tenderness. Ddx: kidney stone. No change in sx or new sx concerning for infected stone, UTI, obstruction, or new pathology. -CBC,CMP,UA/UC -IVF -Pain management: ofirmev, toradol -Urology consult -Dispo: pending workup and reassessment 03/01/20 20:12 Labs reviewed. UA + for 1+ blood, no UTI. WBC 11.5 increased from 11.2 yesterday. BUN 10, Cr 1.0. 03/01/20 20:17 UC from yesterday lactose fermenting negative bacilli, but UA yesterday and today negative for UTI. Pt does not have s/s of UTI/pyelo/infection. Will discuss with Urology. -Call placed to urology 03/01/20 21:[address] Gama urology - due to size and location of stone, length of time of pain (<2 weeks), and pt's pain controlled with PO meds - recommends 1 dose rocephin and can see outpatient tomorrow (possible external lithotripsy). If patient doesn't like oxycodone, recommends tramadol. -1g rocephin 03/01/20 21:26 Pt's pain improved but still present. Willing to take an opiate now. -Tramadol 50mg 03/01/20 22:20 D/c Discharge - Discharge Information Problems reviewed: Yes Clinical Impression/Diagnosis: Kidney stone on left side Condition: Improved Disposition: HOME - Admission No - Follow up/Referral Referrals: Jaguar Reina MD [Primary Care Provider] - Sim Roberts MD [Staff Physician] - Alonso Purvis MD [Staff Physician] - - Patient Discharge Instructions Patient Printed Discharge Instructions: DI for Kidney Stones, DI for Extr acorporeal Shock Wave Lithotripsy, DI for Prescription Opioid Use Additional Instructions: You have been seen in the Emergency Department for your kidney stone. Your pain improved with ibuprofen, tylenol, and tramadol. We spoke with a Urologist Dr Purvis and he will see you at his office tomorrow for further evaluation and management. Call his office in the morning to make an appointment for tomorrow. If you experience pain, take your prescribed Tylenol, Ibuprofen, and Oxycodone as directed on the medication bottles, but do not exceed 3g of Ibuprofen or 4g of Tylenol a day. Return to the Emergency Department immediately if you experience inability to urinate, fever, vomiting, or any other new or worsening symptom. - Post Discharge Activity
[2020-03-01] MEDS ORDERED: SODIUM CHLORIDE 0.9% 500 ML INFUS.BAG IV ONE (19:33)
[2020-03-01] MEDS ORDERED: KETOROLAC TROMETHAMINE 15 MG/ML VIAL IVPUSH ONE (19:33)
[2020-03-01] MEDS ORDERED: ACETAMINOPHEN 1000 MG/100 ML VIAL (NON FORMULARY) IVPB ONE (19:33)
[2020-03-01] MEDS ORDERED: KETOROLAC TROMETHAMINE 15 MG/ML VIAL ONE (19:39)
[2020-03-01] MEDS ORDERED: ACETAMINOPHEN INJECTION 100 ML IVPB ONE (19:41)
[2020-03-01 19:50] LABS: BASO % 0.9 % (0-2.0); EOS % 0.7 % (0-4.5); HEMOGLOBIN 13.6 GM/dL (11.7-16.9); LYMPH % 15.5 % (8-40); MCH 30.7 pg (25.7-33.7); MCHC 33.9 g/dl (32.0-35.9); MEAN CELL VOLUME 90.6 fl (80-96); MEAN PLT VOLUME 8.3 fl (7.5-11.1); MONO % 7.9 % (3.8-10.2); PLATELET COUNT 242 K/MM3 (134-434); RBC 4.42 M/mm3 (4.00-5.60); RDW 13.6 % (11.9-15.9); WHITE BLOOD COUNT 11.5 K/mm3 (4.0-10.0)
[2020-03-01 20:08] LABS: EPI CELLS 2 /uL (0-25.1); HYALINE CASTS 0 /uL (0-3.1); URINE APPEARANCE CLEAR; URINE BACTERIA 51 /uL (0-1359); URINE BILIRUBIN NEGATIVE (NEGATIVE); URINE COLOR YELLOW; URINE GLUCOSE (UA) NEGATIVE (NEGATIVE); URINE KETONE NEGATIVE (NEGATIVE); URINE LEUK ESTERASE NEGATIVE (NEGATIVE); URINE NITRITE NEGATIVE (NEGATIVE); URINE PROTEIN NEGATIVE (NEGATIVE); URINE RBC 48 /uL (0-23.9); URINE UROBILINOGEN 0.2 mg/dL (0.2-1.0); URINE WBC 2 /uL (0-25.8)
[2020-03-01 20:16] LABS: ALBUMIN 3.2 g/dl (3.4-5.0); BILIRUBIN,TOTAL 0.4 mg/dL (0.2-1); BLOOD UREA NITROGEN 10.9 mg/dL (7-18); CALCIUM 9.2 mg/dL (8.5-10.1); TOT PROT 6.8 g/dl (6.4-8.2)
[2020-03-01] MEDS ORDERED: CEFTRIAXONE 1 GM in DEXTROSE 5%-WATER - 100 ML IVPB ONE (20:40)
[2020-03-01] MEDS ORDERED: CEFTRIAXONE 1 GM/50 ML BAG ONE (20:50)
--- NOTE | 2020-03-01 21:17 | PDOC ---
Documentation entered by Jerod Azul SCRIBE, acting as scribe for Natacha Gupta MD. Natacha Gupta MD: This documentation has been prepared by the scribe, Jerod Coronado SCRIBE, under my direction and personally reviewed by me in its entirety. I confirm that the documentation accurately reflects all work, treatment, procedures, and medical decision making performed by me. Attending Attestation - Resident Resident Name: Shanae Mario - ED Attending Attestation I have performed the following: I have examined & evaluated the patient, The case was reviewed & discussed with the resident, I agree w/resident's findings & plan, Exceptions are as noted - HPI HPI: 03/01/20 19:51 The patient is a 34 year old male with a significant past medical history of acute myeloid leukemia (remission 2010) and renal stones who presents to the emergency department for evaluation of left flank pain secondary to a kidney stone that began three days ago. The patient reports taking his pain medications in the morning to relief but not taking them in the afternoon, causing him to come in. The patient was here yesterday and two days ago for the same symptoms. Denies radiation of the pain to the penis. The patient denies chest/back pain, cough, and shortness of breath. Denies fever, chills, nausea, vomiting, and/or any GI symptoms. Denies any other symptoms. Allergies: acyclovir Past surgical history: None reported Social history: Everyday smoker (1/2 ppd tobacco use x 1 year). Denies alcohol use and recreational drugs PCP: Jaguar Reina - Physicial Exam PE: 03/01/20 19:25 GENERAL: Well developed, well nourished,with left sided flank pain HEENT: Normocephalic, atraumatic. PERRLA, EOMI. No conjunctival pallor. Sclera are non- icteric. Moist mucous membranes. Oropharynx is clear. NECK: Supple. Full ROM. No JVD. CARDIOVASCULAR: Regular rate and rhythm. No murmurs, rubs, or gallops. PULMONARY: No evidence of respiratory distress. Lungs clear to auscultation bilaterally. ABDOMINAL: Soft. Non-tender. Non-distended. No rebound or guarding. MUSCULOSKELETAL: Normal range of motion at all joints. ++left flank tenderness EXTREMITIES: No cyanosis. No clubbing. No edema. No calf tenderness. SKIN: Warm and dry. Normal capillary refill. No rashes. No jaundice. NEUROLOGICAL: Alert, awake, appropriate. Cranial nerves 2-12 intact. No deficits to light touch and temperature in face PSYCHIATRIC: Cooperative. Good eye contact. Appropriate mood and affect. 03/01/20 21:16 - Medical Decision Making 03/01/20 21:17 We spoke with urology ( Dr Michelle)and this pt can be seen tomorrow in the office and have an external lithrotripsy if he chooses. Urology recommended one gram of rocephin prior to discharge 03/01/20 21:20 ct scan done this week showed a 3 mm stone near UVJ with mild hydronephrosis imp left nephrolithiasis plan follow up w urology Discharge - Discharge Information Problems reviewed: Yes Clinical Impression/Diagnosis: Kidney stone on left side Condition: Improved Disposition: HOME - Follow up/Referral Referrals: Sim Roberts MD [Staff Physician] - Alonso Purvis MD [Staff Physician] - Jaguar Reina MD [Primary Care Provider] - - Patient Discharge Instructions Patient Printed Discharge Instructions: DI for Kidney Stones, DI for E xtracorporeal Shock Wave Lithotripsy, DI for Prescription Opioid Use Additional Instructions: You have been seen in the Emergency Department for your kidney stone. Your pain improved with ibuprofen, tylenol, and tramadol. We spoke with a Urologist Dr Purvis and he will see you at his office tomorrow for further evaluation and management. Call his office in the morning to make an appointment for tomorrow. If you experience pain, take your prescribed Tylenol, Ibuprofen, and Oxycodone as directed on the medication bottles, but do not exceed 3g of Ibuprofen or 4g of Tylenol a day. Return to the Emergency Department immediately if you experience inability to urinate, fever, vomiting, or any other new or worsening symptom. - Post Discharge Activity
[2020-03-01] MEDS ORDERED: traMADol HCL 50 MG TABLET PO ONE (21:30)
[2020-03-01] MEDS ORDERED: traMADol HCL 50 MG TABLET ONE (21:39)
[2020-03-01] MEDS ORDERED: ACETAMINOPHEN 500 MG TABLET (FP) PO ONE (22:19)
[2020-03-01] MEDS ORDERED: ACETAMINOPHEN 325 MG TABLET (FP) ONE (22:27)
[2020-03-01 22:36] VITALS: BP 126/86; PULSE 89
== END 2020-03-01 22:36 | disposition home or self-care (01) ==
LOC: JER 18:43
PROC: 3E03329 Introduction of Other Anti-infective into Peripheral Vein, Percutaneous Approach (ICD-10-PCS; principal; 2020-03-01)
PROC: 3E033GC Introduction of Other Therapeutic Substance into Peripheral Vein, Percutaneous Approach (ICD-10-PCS; 2020-03-01)
DX: N20.0 Calculus of kidney (principal)
CPT/HCPCS: 36415; 80053; 81003; 85025; 87086; 87186; 99284-25; J0131

== ENCOUNTER 2021-08-14 22:49 | Emergency (ER) | payer OTHER ==
[2021-08-14] MEDS ORDERED: IBUPROFEN 400 MG TABLET (FP) PO ONE ×2 (23:13→23:28)
[2021-08-14 23:17] VITALS: BP 132/85; PULSE 82; TEMP 98.6; BMI 45.8
== END 2021-08-14 23:36 | disposition home or self-care (01) ==
LOC: FER 22:49
DX: R07.0 Pain in throat (principal); R09.81 Nasal congestion; M79.10 Myalgia, unspecified site
CPT/HCPCS: 87804; 99283-25; C9803-CS; U0003; U0005

== ENCOUNTER 2022-07-10 19:36 | Emergency (ER) | payer OTHER ==
[2022-07-10 19:53] VITALS: RESP 20; BMI 50.1
[2022-07-10] MEDS ORDERED: SODIUM CHLORIDE 0.9% 500 ML INFUS.BAG IV ONE (22:03)
[2022-07-10] MEDS ORDERED: METOCLOPRAMIDE HCL INJECTION 10 MG/2 ML VIAL IVPUSH ONE (22:04)
[2022-07-10] MEDS ORDERED: METOCLOPRAMIDE HCL INJECTION 10 MG/2 ML VIAL ONE (22:19)
[2022-07-10 22:49] LABS: HEMATOCRIT 45.2 % (35.4-49); HEMOGLOBIN 15.3 GM/dL (11.7-16.9); MCH 29.1 pg (25.7-33.7); MCHC 33.8 g/dl (32.0-35.9); MEAN CELL VOLUME 85.9 fl (80-96); MEAN PLT VOLUME 7.6 fl (7.5-11.1); PLATELET COUNT 377 10^3/uL (134-434); RBC 5.27 M/mm3 (4.00-5.60); RDW 13.5 % (11.9-15.9); WHITE BLOOD COUNT 11.6 K/mm3 (4.0-10.0)
[2022-07-10 23:01] LABS: CALCIUM 9.6 mg/dL (8.5-10.1)
[2022-07-10 23:02] LABS: ALBUMIN 3.5 g/dl (3.4-5.0); BLOOD UREA NITROGEN 6.3 mg/dL (7-18)
[2022-07-10 23:05] LABS: CREATININE 0.6 mg/dL (0.55-1.3)
[2022-07-10 23:06] LABS: BILIRUBIN,TOTAL 0.3 mg/dL (0.2-1); TOT PROT 7.6 g/dl (6.4-8.2)
[2022-07-10] MEDS ORDERED: ACETAMINOPHEN 500 MG TABLET (FP) PO ONE (23:39)
[2022-07-10 23:40] LABS: ANISOCYTOSIS 0; MACROCYTOSIS 0
[2022-07-10 23:43] VITALS: BP 140/93; PULSE 87; TEMP 98.4
[2022-07-10] MEDS ORDERED: ACETAMINOPHEN 500 MG TABLET (FP) ONE (23:45)
== END 2022-07-11 00:38 | disposition home or self-care (01) ==
LOC: JER 19:36
PROC: 3E033GC Introduction of Other Therapeutic Substance into Peripheral Vein, Percutaneous Approach (ICD-10-PCS; principal; 2022-07-10)
PROC: 3E033GC Introduction of Other Therapeutic Substance into Peripheral Vein, Percutaneous Approach (ICD-10-PCS; 2022-07-10)
DX: H92.03 Otalgia, bilateral (principal); R51.9 Headache, unspecified; R05.1 Acute cough
CPT/HCPCS: 36415; 71046-TC-FY; 80053; 85025; 99284-25

== ENCOUNTER 2022-07-25 23:53 | Emergency (ER) | payer OTHER ==
[2022-07-25 23:59] VITALS: BP 141/98; PULSE 84; RESP 20; TEMP 97.9; BMI 50.1
[2022-07-26] MEDS ORDERED: MAG HYDROX/AL HYDROX/SIMETH 30 ML UNIT-DOSE CUP PO ONE (00:17)
[2022-07-26] MEDS ORDERED: ACETAMINOPHEN 1000 MG/100 ML BAG IVPB ONE (00:17)
[2022-07-26] MEDS ORDERED: FAMOTIDINE 20 MG/50 ML IVPB 20 MG/50 ML MG IVPB ONE ×2 (00:17→00:23)
[2022-07-26] MEDS ORDERED: SODIUM CHLORIDE 0.9% 500 ML INFUS.BAG IV ONE (00:17)
[2022-07-26] MEDS ORDERED: ACETAMINOPHEN INJECTION 100 ML IVPB ONE (00:23)
[2022-07-26] MEDS ORDERED: MAG HYDROX/AL HYDROX/SIMETH 30 ML UNIT-DOSE CUP ONE (00:23)
[2022-07-26 00:57] LABS: BASO % 0.9 % (0-2.0); EOS % 1.7 % (0-4.5); HEMATOCRIT 42.8 % (35.4-49); HEMOGLOBIN 14.2 GM/dL (11.7-16.9); LYMPH % 28.8 % (8-40); MCH 28.2 pg (25.7-33.7); MCHC 33.2 g/dl (32.0-35.9); MEAN CELL VOLUME 84.9 fl (80-96); MEAN PLT VOLUME 7.2 fl (7.5-11.1); MONO % 8.5 % (3.8-10.2); NEUT % 60.1 % (42.8-82.8); PLATELET COUNT 343 10^3/uL (134-434); RBC 5.04 M/mm3 (4.00-5.60); RDW 14.3 % (11.9-15.9); WHITE BLOOD COUNT 9.4 K/mm3 (4.0-10.0)
[2022-07-26 01:16] LABS: CALCIUM 9.5 mg/dL (8.5-10.1)
[2022-07-26 01:17] LABS: ALBUMIN 3.4 g/dl (3.4-5.0); MAGNESIUM 2.2 mg/dL (1.8-2.4)
[2022-07-26 01:20] LABS: CREATININE 0.7 mg/dL (0.55-1.3)
[2022-07-26 01:21] LABS: BILIRUBIN,TOTAL 0.3 mg/dL (0.2-1)
[2022-07-26 01:22] LABS: TOT PROT 7.5 g/dl (6.4-8.2)
[2022-07-26 02:09] LABS: BLOOD UREA NITROGEN 10.6 mg/dL (7-18)
[2022-07-26 03:19] LABS: PH,URINE 5.5 (5.0-8.0); URINE APPEARANCE CLEAR; URINE BILIRUBIN NEGATIVE (NEGATIVE); URINE COLOR YELLOW; URINE GLUCOSE (UA) NEGATIVE (NEGATIVE); URINE KETONE NEGATIVE (NEGATIVE); URINE LEUK ESTERASE NEGATIVE (NEGATIVE); URINE NITRITE NEGATIVE (NEGATIVE); URINE PROTEIN NEGATIVE (NEGATIVE); URINE UROBILINOGEN 0.2 mg/dL (0.2-1.0)
== END 2022-07-26 04:31 | disposition home or self-care (01) ==
LOC: JER 23:53
PROC: 3E0333Z Introduction of Anti-inflammatory into Peripheral Vein, Percutaneous Approach (ICD-10-PCS; principal; 2022-07-25)
PROC: 3E033GC Introduction of Other Therapeutic Substance into Peripheral Vein, Percutaneous Approach (ICD-10-PCS; 2022-07-25)
DX: R10.12 Left upper quadrant pain (principal); R19.7 Diarrhea, unspecified
CPT/HCPCS: 0241U-QW; 36415; 71046-TC-FY; 74177-TC; 80053; 81003; 82272; 83690; 83735; 85025; 87086; 87186; 87324; 87449; 99285-25